=== PATIENT | male | born 1960 | race Caucasian/White ===

== ENCOUNTER 2021-10-24 05:14 | Inpatient (IN) | payer OTHER ==
[~2021-10-24] VITALS: Ht 172.7 cm; Wt 88.5 kg
[2021-10-24] MEDS ORDERED: ONDANSETRON HCL/PF 4 MG/2 ML VIAL ONE (05:27)
[2021-10-24] MEDS ORDERED: ONDANSETRON HCL/PF 4 MG/2 ML VIAL IV ONE (05:30)
[2021-10-24] MEDS ORDERED: IV NS 0.9% 1,000 ML BAG IV ONE (05:30)
--- NOTE | 2021-10-24 05:30 | NUR ---
PADMAJA TO ER BED 3. AAOX4. NOT IN RESP DISTRESS. BROUGHT IN FOR A SYNCOPAL EPISODE WHILE HE WAS AMBULATING TO BATHROOM. PT DENIES HIITING HIS HEAD. COMPLAINING OF DIZZYNESS, NAUSE AND REPORTS AN EPISODE OF VOMMITING BLOOD. PT RECEIVED ZOFRAN 4MG VIA IV AND 300ML OF NS VIA IV
--- NOTE | 2021-10-24 05:31 | NUR ---
ER SOLUTION STRATEGIST AT BEDSIDE
--- NOTE | 2021-10-24 05:42 | NUR ---
pt to ct
[2021-10-24] MEDS ORDERED: PANTOPRAZOLE 40 MG VIAL ONE (05:45)
[2021-10-24 05:49] LABS: BASOPHILS % (AUTO) 0.3 % (0.0-2.0); EOSINOPHILS % (AUTO) 1.6 % (0.0-6.0); HEMATOCRIT 30 % (39-51); HEMOGLOBIN 10.2 g/dL (13.5-17.5); LYMPHOCYTES # (AUTO) 2.3 K/uL (0.8-4.8); LYMPHOCYTES % (AUTO) 35.1 % (20.0-44.0); MEAN CORPUSCULAR HGB CONC 34 g/dl (31.0-36.0); MEAN CORPUSCULAR VOLUME 94 fL (80-96); MONOCYTES # (AUTO) 0.4 K/uL (0.1-1.30); NEUTROPHILS # (AUTO) 3.8 K/uL (1.8-8.9); PLATELET COUNT (AUTO) 102 K/uL (150-450); RED BLOOD CELL COUNT(AUTO) 3.19 MIL/uL (4.5-6.0); WHITE BLOOD COUNT (AUTO) 6.6 K/uL (4.3-11.0)
--- NOTE | 2021-10-24 05:54 | NUR ---
PT RETURNED FROM CT
[2021-10-24] MEDS ORDERED: PANTOPRAZOLE 80 MG in IV NS 0.9% 500 ML IV ONE (06:00)
[2021-10-24 06:08] LABS: CALCIUM, SERUM 8.1 mg/dL (8.5-10.1); CARBON DIOXIDE 24 mmol/L (21-32); CHLORIDE 106 mmol/L (98-107); CREATININE 0.9 mg/dL (0.6-1.3); GLUCOSE 207 mg/dL (74-106); POTASSIUM 3.8 mmol/L (3.5-5.1); SODIUM SERUM 139 mmol/L (136-145); UREA NITROGEN, BLOOD 28 mg/dL (7-18)
[2021-10-24 06:14] LABS: ALANINE AMINOTRANSFERASE 28 U/L (12-78); ALBUMIN 2.5 g/dL (3.4-5.0); ALKALINE PHOSPHATASE 102 U/L (46-116); ASPARTATE AMINOTRANSFERASE 35 U/L (15-37); BILIRUBIN,DIRECT 0.4 mg/dL (0.0-0.2); BILIRUBIN,TOTAL 1.3 mg/dL (0.2-1.0); TOTAL PROTEIN, SERUM 6.5 g/dL (6.4-8.2)
--- NOTE | 2021-10-24 06:17 | NUR ---
XRAY AT BEDSIDE
--- NOTE | 2021-10-24 07:25 | NUR ---
COVID SWAB COLLECTED
[2021-10-24] MEDS ORDERED: OCTREOTIDE 50 MCG in IV NS 0.9% 50 ML IJ ONE (09:30)
[2021-10-24] MEDS ORDERED: CEFTRIAXONE 1 G in IV D5W 50 ML IV ONE (09:30)
[2021-10-24] MEDS ORDERED: METOCLOPRAMIDE HCL 10 MG/2 ML VIAL IV ONE (09:30)
[2021-10-24] MEDS ORDERED: OCTREOTIDE 1,250 MCG in IV NS 0.9% 247.5 ML IV PRN (09:30)
[2021-10-24] MEDS ORDERED: METOCLOPRAMIDE HCL 10 MG/2 ML VIAL ONE (10:20)
--- NOTE | 2021-10-24 11:15 | NUR ---
ROOM 109
--- NOTE | 2021-10-24 11:16 | NUR ---
REPORT GIVEN TO NURSE DOMINGUEZ FOR CARY
--- NOTE | 2021-10-24 11:27 | NUR ---
THE PATIENT IS TRANSFERED TO ROOM 109 IN STABLE CONDITION AND PER ACLS POLICY
--- NOTE | 2021-10-24 11:30 | NUR ---
CROCHET BEADER OPENING NOTE RECEIVED PATIENT FROM ER VIA GURNEY ACCOMPANIED BY TWO ER STAFF. PATIENT IS ALERT AND ORIENTED X 3. BREATHING UNLABORED, DENIES PAIN, AND NOT IN ANY FORM OF DISTRESS. CLEAR BREATH SOUNDS WITH OXYGEN SATURATION AT 96%. PATIENT HAS ONGOING BLOOD TRANSFUSION OF 1 UNIT PRBC, INFUSING ON RIGHT ANTECUBITAL AREA. LEFT FOREARM IV GAUGE 18 IS INTACT AND PATENT AND INFUSING WITH PROTONIX. LEFT HAND GAUGE 18 IV IS INTACT AND PATENT. PATIENT IS ORIENTED TO ROOM AND ALL HOSPITAL PRECAUTIONS ARE KEPT IN PLACE. INITIAL ASSESSMENTS DONE AND DOCUMENTED ACCORDINGLY. BED IS LOCKED IN LOWEST POSITION, 3 SIDE RAILS UP, CALL LIGHT WITHIN REACH. WILL CONTINUE TO MONITOR THROUGHOUT SHIFT.
--- NOTE | 2021-10-24 11:55 | NUR ---
RN NOTE V/S MONITORED HOURLY DURING BLOOD TRANSFUSION. T: 98, VA 68, RR 18, BP 107/56, PAIN 0/10. NO TRANSFUSION REACTION NOTED.
[2021-10-24 12:00] VITALS: BP 107/56
--- NOTE | 2021-10-24 12:25 | NUR ---
RN NOTE TRANSFUSION ENDED. NO UNTOWARD REACTION NOTED. V/S: T 97.7, HR 70, RR 18, BP 109/56, PAIN 0/10.
[2021-10-24] MEDS ORDERED: Z GUARD REMEDY 4 OZ OINT TP PRN (13:30)
[2021-10-24] MEDS ORDERED: MAGNESIUM HYDROXIDE 30 ML UDC PO PRN (13:30)
[2021-10-24] MEDS ORDERED: MAG HYDROX/AL HYDROX/SIMETH 30 ML UDC PO PRN (13:30)
[2021-10-24] MEDS ORDERED: ONDANSETRON HCL/PF 4 MG/2 ML VIAL IVP PRN (13:30)
[2021-10-24] MEDS ORDERED: ACETAMINOPHEN 325 MG TABLET PO PRN (13:30)
[2021-10-24] MEDS ORDERED: ZOLPIDEM TARTRATE 5 MG TABLET PO PRN (13:30)
[2021-10-24 14:30] LABS: HEMOGLOBIN 10.7 g/dL (13.5-17.5)
--- NOTE | 2021-10-24 15:30 | NUR ---
RN NOTE PATIENT LEFT THE UNIT ACCOMPANIED BY TWO OR STAFF FOR EGD PROCEDURE. NOT IN ANY FORM OF DISTRESS.
--- NOTE | 2021-10-24 16:00 | NUR ---
RN NOTE RECEIVED PATIENT FROM OR POST EGD, IN STABLE CONDITION.
[2021-10-24] MEDS: IV D5/0.45 NACL 1,000 ML IV PRN (16:58)
[2021-10-24] MEDS: BLOOD SUGAR DIAGNOSTIC 1 EACH STRIP IN SCH ×2 (17:45→22:34)
[2021-10-24] MEDS ORDERED: DEXTROSE 50%-WATER 50 ML DISP.SYRIN IV PRN (18:00)
[2021-10-24] MEDS: INSULIN REGULAR, HUMAN 100 UNIT/ML 3 ML VIAL SQ PRN ×2 (18:31→22:36)
--- NOTE | 2021-10-24 18:51 | NUR ---
RN CLOSING NOTE PATIENT REMAINED STABLE THROUGHOUT THE SHIFT. NO EPISODE OF BLEEDING, NAUSEA OR VOMITING. ON CLEAR LIQUID DIET. SANDOSTATIN DRIP DISCONTINUED PER DOCTOR'S ORDER. ALL IV LINES INTACT AND PATENT. DENIES PAIN, BREATHING UNLABORED AND NOT IN ANY FORM OF DISTRESS. WILL ENDORSE TO REED MAN NURSE.
[2021-10-24 20:00] VITALS: BP 122/64
--- NOTE | 2021-10-24 20:00 | NUR ---
FISH PEDDLER OPENING NOTES RECEIVED PTS IN BED AWAKE A/OX3 RESPONSIVE ON R/A SATING 98% SR -HR 76 ON TELE MONITOR , NO SOB NO DISTRESS NOTED , V/S STABLE AFEBRILE .ON IV FLUID D5 1/2 NS AT 75CC/HR ON RIGHT AC g#20 , LEFT HAND g 18 ,LEFT FA g#18 INTACT AND PATENT. PTS S/P EGD .AND S/P 1 PACK PRBC THIS MORNING IN ER .DUE MEDS GIVEN NO ASE NOTED . ALL NEEDS ATTENDED TOO CALL LIGHT WITHIN REACH WILL CONTINUE TO MONITOR PTS.
[2021-10-24] MEDS: PANTOPRAZOLE 40 MG VIAL IV SCH (22:15)
--- NOTE | 2021-10-24 22:40 | NUR ---
teletype operator notes blood sugar for 10pm is 180 mg/dl 3 units of regular insulin given per sliding scale
[2021-10-25] VITALS: BP 116/54
[2021-10-25 04:00] VITALS: BP 98/47
--- NOTE | 2021-10-25 06:54 | NUR ---
senior telecommunications specialist notes pts remains on r/a , sating 96% no sob no distress noted ivf of D5 1/2ns at 75cc/hr tolerating well. all needs attended too call light within reach will endorse to rn day shift for continuity of care ..
--- NOTE | 2021-10-25 07:20 | NUR ---
CERAMIC ENGINEERING PROFESSOR OPENING NOTES: RECEIVED PATIENT IN BED, ASLEEP BUT EASILY AROUSES TO VOICE AND SOUND. NO SOB NOTED, ALERT AND ORIENTED X 4. NO RESPIRATORY DISTRESS NOTED. ON RA WITH OXYGEN SATURATION OF 95%. HAS IV FLUID OF D51/2 NS @ 75 ML/HR VIA LEFT FOREARM, PATENT, NO S/S OF INFILTRATION. ALSO HAS SALINE LOCKS ON LEFT HAND # 18, RIGHT ANTECUBITAL # 20, BOTH PATENT, FLUSHES WELL, NO REDNESS NOTED. BED LOCKED AND IN LOWEST POSITION. CALL LIGHT WITHIN REACH. SR UP X 2. WILL MONITOR PATIENT THROUGHOUT SHIFT.
[2021-10-25 08:00] VITALS: BP 93/52
[2021-10-25] MEDS: BLOOD SUGAR DIAGNOSTIC 1 EACH STRIP IN SCH ×4 (08:13→22:25)
[2021-10-25] MEDS: INSULIN REGULAR, HUMAN 100 UNIT/ML 3 ML VIAL SQ PRN ×3 (08:15→17:29)
[2021-10-25] MEDS: PANTOPRAZOLE 40 MG VIAL IV SCH ×2 (08:18→22:25)
[2021-10-25] MEDS: IV D5/0.45 NACL 1,000 ML IV PRN (10:17)
[2021-10-25 11:27] LABS: BASOPHILS % (AUTO) 0.7 % (0.0-2.0); EOSINOPHILS % (AUTO) 1.4 % (0.0-6.0); HEMATOCRIT 27 % (39-51); LYMPHOCYTES # (AUTO) 1.4 K/uL (0.8-4.8); LYMPHOCYTES % (AUTO) 36.3 % (20.0-44.0); MEAN CORPUSCULAR HGB CONC 34 g/dl (31.0-36.0); MEAN CORPUSCULAR VOLUME 93 fL (80-96); MONOCYTES # (AUTO) 0.2 K/uL (0.1-1.30); MONOCYTES % (AUTO) 6.3 % (2.0-12.0); NEUTROPHILS # (AUTO) 2.1 K/uL (1.8-8.9); NEUTROPHILS % (AUTO) 55.3 % (43.0-81.0); PLATELET COUNT (AUTO) 71 K/uL (150-450); RED BLOOD CELL COUNT(AUTO) 2.85 MIL/uL (4.5-6.0); WHITE BLOOD COUNT (AUTO) 3.7 K/uL (4.3-11.0)
[2021-10-25 11:45] LABS: CALCIUM, SERUM 7.8 mg/dL (8.5-10.1); CREATININE 0.8 mg/dL (0.6-1.3); MAGNESIUM 1.7 mg/dL (1.8-2.4); PHOSPHORUS 3.2 mg/dL (2.5-4.9); POTASSIUM 3.7 mmol/L (3.5-5.1)
[2021-10-25 12:00] VITALS: BP 112/59
[2021-10-25 12:21] LABS: LYMPHOCYTES % (MANUAL) 37 % (16-48); MONOCYTES % (MANUAL) 4 % (0-11.0); NEUTROPHILS % (MANUAL) 59 (42-76)
[2021-10-25 13:16] LABS: HEMOGLOBIN 9.6 g/dL (13.5-17.5)
[2021-10-25 16:00] VITALS: BP 113/54
[2021-10-25] MEDS ORDERED: CEFTRIAXONE 1 G in IV D5W 50 ML IV SCH (17:00)
--- NOTE | 2021-10-25 19:00 | NUR ---
RN CLOSING NOTES: PATIENT IN BED, AWAKE, ALERT ORIENTED X 4. NO SOB NOTED. ON RA WITH OXYGEN SATURATION OF 97%. HAS IV FLUID OF D51/2 NS @ 75 ML/HR VIA LEFT FOREARM, PATENT, NO S/S OF INFILTRATION. ALSO HAS SALINE LOCKS ON LEFT HAND # 18, RIGHT ANTECUBITAL # 20, BOTH PATENT, FLUSHES WELL, NO S/S OF INFILTRATION NOTED. BED LOCKED AND IN LOWEST POSITION. CALL LIGHT WITHIN REACH. NO C/O PAIN THE ENTIRE SHIFT. WILL ENDORSE TO NEXT SHIFT NURSE
[2021-10-25 20:00] VITALS: BP 113/69
--- NOTE | 2021-10-25 20:14 | NUR ---
RECEIVED PATIENT IN BED, ASLEEP BUT EASILY AROUSES TO VOICE AND SOUND. NO SOB NOTED, ALERT AND ORIENTED X 4. NO RESPIRATORY DISTRESS NOTED. ON RA WITH OXYGEN SATURATION OF 95%. HAS IV FLUID OF D51/2 NS @ 75 ML/HR VIA LEFT FOREARM, PATENT, NO S/S OF INFILTRATION. ALSO HAS SALINE LOCKS ON LEFT HAND # 18, RIGHT ANTECUBITAL # 20, BOTH PATENT, FLUSHES WELL, NO REDNESS NOTED. SAFETY MEASURES IN PLACE, BED LOCKED AND IN LOWEST POSITION. CALL LIGHT WITHIN REACH. SIDERAILS UP X 2. BED ALARM ON, WILL CONTINUE PLAN OF CARE.
[2021-10-26] VITALS: BP 118/62
[2021-10-26] MEDS: INSULIN REGULAR, HUMAN 100 UNIT/ML 3 ML VIAL SQ PRN ×3 (01:58→12:26)
[2021-10-26] MEDS: IV D5/0.45 NACL 1,000 ML IV PRN (02:10)
[2021-10-26 04:00] VITALS: BP 105/50
--- NOTE | 2021-10-26 06:35 | NUR ---
PATIENT IN BED, ASLEEP BUT EASILY AROUSES TO VOICE AND SOUND. NO SOB NOTED, ALERT AND ORIENTED X 4. NO RESPIRATORY DISTRESS NOTED. ON RA WITH OXYGEN SATURATION OF 95%. HAS IV FLUID OF D51/2 NS @ 75 ML/HR VIA LEFT FOREARM, PATENT, NO S/S OF INFILTRATION. ALSO HAS SALINE LOCKS ON LEFT HAND # 18, RIGHT ANTECUBITAL # 20, BOTH PATENT, FLUSHES WELL, NO REDNESS NOTED. SAFETY MEASURES IN PLACE, BED LOCKED AND IN LOWEST POSITION. CALL LIGHT WITHIN REACH. SIDERAILS UP X 2. BED ALARM ON, WILL ENDORSE TO NEXT NURSE ON DUTY FOR CONTINUITY OF CARE.
[2021-10-26 07:12] LABS: BASOPHILS % (AUTO) 0.7 % (0.0-2.0); HEMATOCRIT 26 % (39-51); HEMOGLOBIN 9.2 g/dL (13.5-17.5); LYMPHOCYTES # (AUTO) 1.2 K/uL (0.8-4.8); LYMPHOCYTES % (AUTO) 40.8 % (20.0-44.0); MEAN CORPUSCULAR HGB CONC 36 g/dl (31.0-36.0); MEAN CORPUSCULAR VOLUME 93 fL (80-96); MONOCYTES # (AUTO) 0.2 K/uL (0.1-1.30); MONOCYTES % (AUTO) 8.4 % (2.0-12.0); NEUTROPHILS # (AUTO) 1.4 K/uL (1.8-8.9); NEUTROPHILS % (AUTO) 47.1 % (43.0-81.0); PLATELET COUNT (AUTO) 66 K/uL (150-450); RED BLOOD CELL COUNT(AUTO) 2.79 MIL/uL (4.5-6.0)
[2021-10-26 07:16] LABS: CALCIUM, SERUM 7.9 mg/dL (8.5-10.1); CREATININE 0.8 mg/dL (0.6-1.3); MAGNESIUM 1.9 mg/dL (1.8-2.4); PHOSPHORUS 4.6 mg/dL (2.5-4.9); POTASSIUM 3.5 mmol/L (3.5-5.1)
--- NOTE | 2021-10-26 07:30 | NUR ---
teletype mechanic opening note patient is alert and oriented x4. patient is congolese speaking. patient is able to make needs known. patient has iv site.intzact and flushing well. asll safety measures in place. call light within reach, bed locked in lowest position.
[2021-10-26] MEDS: BLOOD SUGAR DIAGNOSTIC 1 EACH STRIP IN SCH ×2 (07:34→12:26)
[2021-10-26 08:00] VITALS: BP 106/61
[2021-10-26] MEDS: PANTOPRAZOLE 40 MG VIAL IV SCH (08:32)
[2021-10-26 12:00] VITALS: BP 110/58
[2021-10-26] MEDS ORDERED: PANT40TA2 PO (12:24)
--- NOTE | 2021-10-26 14:30 | NUR ---
patient discharged.patient stable vital signs
== END 2021-10-26 14:55 | disposition home or self-care (01) | DRG 241 ==
LOC: ER 05:23 → TRANSITION 09:27 → TELE1 11:07
PROVIDERS: ADMIT Student in an Organized Health Care Education/Training Program; ATTEND Student in an Organized Health Care Education/Training Program
PROC: 0DB68ZX Excision of Stomach, Via Natural or Artificial Opening Endoscopic, Diagnostic (ICD-10-PCS; principal; 2021-10-24)
PROC: 30233N1 Transfusion of Nonautologous Red Blood Cells into Peripheral Vein, Percutaneous Approach (ICD-10-PCS; 2021-10-24)
DX: K26.4 Chronic or unspecified duodenal ulcer with hemorrhage (principal); D69.6 Thrombocytopenia, unspecified; E44.0 Moderate protein-calorie malnutrition; K76.0 Fatty (change of) liver, not elsewhere classified; E86.0 Dehydration; D64.9 Anemia, unspecified; E11.9 Type 2 diabetes mellitus without complications; Z85.038 Personal history of other malignant neoplasm of large intestine; Z20.822 Contact with and (suspected) exposure to COVID-19; R79.89 Other specified abnormal findings of blood chemistry; K29.70 Gastritis, unspecified, without bleeding
CPT/HCPCS: 36415; 70450-TC; 71045-TC; 80048-TC; 80076-TC; 82962-TC; 83735-TC; 83880; 84100-TC; 84484-TC; 85025-TC; 85027-TC; 85730-TC; 86850-TC; 87081-TC; 93307-TC; 97116-TC; 97530-TC; C9113; C9803; G0378; J0696; J1815; J2354; J2405; J2765; J3490; J7030; J7040; J7050; J7060; P9016

== ENCOUNTER 2021-12-10 18:38 | Emergency (ER) | payer OTHER ==
[~2021-12-10] VITALS: Ht 167.6 cm; Wt 90.7 kg
[~2021-12-10 18:38] MED LIST: PANT40TA2 PO
--- NOTE | 2021-12-10 19:00 | NUR ---
I have a problem with my stomach. Was seen here before for same. Abdominal pain and diarrhea couple of days. patient is aaox4. attached to monitor. vitals checked.
[2021-12-10] MEDS ORDERED: IV NS 0.9% 1,000 ML BAG IV ONE ×2 (19:30)
--- NOTE | 2021-12-10 19:30 | NUR ---
PATIENT WHEELED TO [facility] DEPT
--- NOTE | 2021-12-10 19:49 | NUR ---
RECEIVED PATIENT ALERT. CAME WITH CC OF ABDOMINAL PAIN AND DIARRHEA FOR 2 DAYS. PATIENT ABLE TO MAKE NEEDS KNOWN. ATTACHED TO MONITOR. VITALS CHECKED.
[2021-12-10 20:07] LABS: CALCIUM, SERUM 8.3 mg/dL (8.5-10.1); POTASSIUM 3.9 mmol/L (3.5-5.1)
[2021-12-10 20:27] LABS: ALBUMIN 3.1 g/dL (3.4-5.0); BILIRUBIN,DIRECT 0.5 mg/dL (0.0-0.2); BILIRUBIN,TOTAL 1.2 mg/dL (0.2-1.0); TOTAL PROTEIN, SERUM 7.9 g/dL (6.4-8.2)
[2021-12-10 20:38] LABS: BASOPHILS % (AUTO) 0.3 % (0.0-2.0); EOSINOPHILS % (AUTO) 0.5 % (0.0-6.0); HEMATOCRIT 32 % (39-51); HEMOGLOBIN 10.2 g/dL (13.5-17.5); LYMPHOCYTES # (AUTO) 1.2 K/uL (0.8-4.8); LYMPHOCYTES % (AUTO) 23.8 % (20.0-44.0); MEAN CORPUSCULAR HGB CONC 33 g/dl (31.0-36.0); MEAN CORPUSCULAR VOLUME 86 fL (80-96); MONOCYTES # (AUTO) 0.5 K/uL (0.1-1.30); MONOCYTES % (AUTO) 9.3 % (2.0-12.0); NEUTROPHILS # (AUTO) 3.3 K/uL (1.8-8.9); NEUTROPHILS % (AUTO) 66.1 % (43.0-81.0); PLATELET COUNT (AUTO) 96 K/uL (150-450); RED BLOOD CELL COUNT(AUTO) 3.67 MIL/uL (4.5-6.0); WHITE BLOOD COUNT (AUTO) 4.9 K/uL (4.3-11.0)
[2021-12-10 20:43] LABS: LYMPHOCYTES % (MANUAL) 20 % (16-48); MONOCYTES % (MANUAL) 10 % (0-11.0); NEUTROPHILS % (MANUAL) 70 (42-76)
[2021-12-10] MEDS ORDERED: ONDA4TAB11 PO (21:10)
[2021-12-10] MEDS ORDERED: DICY20TA11 PO (21:10)
[2021-12-10] MEDS ORDERED: LOPE2CAP40 PO (21:10)
--- NOTE | 2021-12-10 21:30 | NUR ---
IV CANNULA REMOVED
--- NOTE | 2021-12-10 21:38 | NUR ---
Patient discharged to home in stable condition. Written and verbal after care instructions given. Patient verbalizes understanding of instruction.
[2021-12-10 21:39] VITALS: BP 118/63
== END 2021-12-10 21:39 | disposition home or self-care (01) ==
LOC: ER 18:42
DX: K52.9 Noninfective gastroenteritis and colitis, unspecified (principal); E11.9 Type 2 diabetes mellitus without complications; Z79.899 Other long term (current) drug therapy
CPT/HCPCS: 99284; 74176; 96360; 85025; 80048; 83690; 80076; 36415; 85007; J7030

== ENCOUNTER 2022-02-11 16:00 | Inpatient (IN) | payer OTHER ==
[~2022-02-11] VITALS: Ht 170.2 cm; Wt 77.6 kg
[~2022-02-11 16:00] MED LIST changes: +DICY20TA11 PO; +LOPE2CAP40 PO; +ONDA4TAB11 PO; +SOD FERRIC GLUC 125 MG in IV NS 0.9% 100 ML IV SCH
--- NOTE | 2022-02-11 16:38 | NUR ---
PT C/O BILATERAL LEG EDEMA AND SOB X 4 DAYS. PT AAOX4, ON TELE, SR. VSS. WILL CONT TO MONITOR.
[2022-02-11 17:10] LABS: BASOPHILS % (AUTO) 1.6 % (0.0-2.0); EOSINOPHILS % (AUTO) 1.6 % (0.0-6.0); LYMPHOCYTES % (AUTO) 35.8 % (20.0-44.0); MEAN CORPUSCULAR HGB CONC 29 g/dl (31.0-36.0); MEAN CORPUSCULAR VOLUME 68 fL (80-96); MONOCYTES # (AUTO) 0.1 K/uL (0.1-1.30); MONOCYTES % (AUTO) 4.5 % (2.0-12.0); NEUTROPHILS # (AUTO) 1.6 K/uL (1.8-8.9); NEUTROPHILS % (AUTO) 56.5 % (43.0-81.0); PLATELET COUNT (AUTO) 122 K/uL (150-450); RED BLOOD CELL COUNT(AUTO) 2.13 MIL/uL (4.5-6.0); WHITE BLOOD COUNT (AUTO) 2.8 K/uL (4.3-11.0)
[2022-02-11 17:14] LABS: CALCIUM, SERUM 7.8 mg/dL (8.5-10.1); CARBON DIOXIDE 22 mmol/L (21-32); CHLORIDE 106 mmol/L (98-107); CREATININE 0.8 mg/dL (0.6-1.3); GLUCOSE 152 mg/dL (74-106); POTASSIUM 3.2 mmol/L (3.5-5.1); SODIUM SERUM 136 mmol/L (136-145); UREA NITROGEN, BLOOD 11 mg/dL (7-18)
[2022-02-11 17:15] LABS: HEMOGLOBIN 4.3 g/dL (13.5-17.5)
[2022-02-11 17:16] LABS: HEMATOCRIT 15 % (39-51)
[2022-02-11 17:28] LABS: ALANINE AMINOTRANSFERASE 17 U/L (12-78); ALBUMIN 2.9 g/dL (3.4-5.0); ALKALINE PHOSPHATASE 108 U/L (46-116); ASPARTATE AMINOTRANSFERASE 33 U/L (15-37); BILIRUBIN,DIRECT 0.4 mg/dL (0.0-0.2); TOTAL PROTEIN, SERUM 7.2 g/dL (6.4-8.2)
[2022-02-11] MEDS ORDERED: FUROSEMIDE 40 MG/4 ML VIAL IV ONE (17:30)
[2022-02-11] MEDS ORDERED: FUROSEMIDE 40 MG/4 ML VIAL ONE (17:42)
[2022-02-11] MEDS ORDERED: CYAN100T44 PO (17:48)
[2022-02-11] MEDS ORDERED: METF1000 PO (17:48)
[2022-02-11] MEDS ORDERED: PANT40TA49 PO (17:48)
--- NOTE | 2022-02-11 17:51 | NUR ---
MEDICATED PER ERMD ORDER, PT AVA WELL. WILL CONT TO MONITOR.
[2022-02-11] MEDS ORDERED: POTASSIUM CHLORIDE 20 MEQ TAB.PRT.SR PO ONE (18:00)
[2022-02-11 19:08] LABS: BILIRUBIN,URINE NEGATIVE (NEGATIVE); COLOR,URINE YELLOW (YELLOW); LEUKOCYTE ESTERASE ,URINE NEGATIVE (NEGATIVE); NITRITE, URINE NEGATIVE (NEGATIVE); PROTEIN,URINE NEGATIVE (NEGATIVE); UGLUCOSE NEGATIVE (NEGATIVE); UROBILINOGEN,URINE 0.2 EU/dL (0.2)
[2022-02-11] MEDS ORDERED: PANTOPRAZOLE 40 MG VIAL IV ONE (19:30)
[2022-02-11] MEDS ORDERED: MAG HYDROX/AL HYDROX/SIMETH 30 ML UDC PO PRN (20:00)
[2022-02-11] MEDS ORDERED: MORPHINE SULFATE INJ 2 MG/ML DISP.SYRIN IV PRN (20:00)
[2022-02-11] MEDS ORDERED: MAGNESIUM HYDROXIDE 30 ML UDC PO PRN (20:00)
[2022-02-11] MEDS ORDERED: ACETAMINOPHEN 325 MG TABLET PO PRN (20:00)
[2022-02-11] MEDS ORDERED: Z GUARD REMEDY 4 OZ OINT TP PRN (20:00)
[2022-02-11] MEDS ORDERED: ONDANSETRON HCL/PF 4 MG/2 ML VIAL IVP PRN (20:00)
[2022-02-11] MEDS ORDERED: DEXTROSE 50%-WATER 50 ML DISP.SYRIN IV PRN (20:00)
--- NOTE | 2022-02-11 20:15 | NUR ---
CONSENT FOR BT SIGNED BY PATIENT. 1 UNIT PRBC READY FOR TRANSFUSION
--- NOTE | 2022-02-11 21:00 | NUR ---
BT STARTED. 1UNIT PRBC STARTED. BLOOD VERIFIED WITH GABRIELLE CORREA. PATIENT WILL BE ON CONTINUOUS MONITORING
--- NOTE | 2022-02-11 21:16 | NUR ---
REPORT GIVEN GABRIELLE ORTEGA
--- NOTE | 2022-02-11 21:30 | NUR ---
RN NOTES ADMITTED A MALE PATIENT FROM ER VIA [facility] WITH DX OF ACUTE ANEMIA SECONDARY TO GI BLEED. VITAL SIGNS TAKEN AND [id number] AFEBRILE. SAFELY TRANSFER TO BED. WITH IV ACCESS AT R AC #20 PATENT WITH ONGOING BLOOD TRANSFUSION @ 75ML/HR TOLERATING WELL NO TRANSFUSION REACTION NOTED AT THIS TIME. BODY ASSESSMENT DONE. BELONGINGS CHECK. ALL SAFETY MEASURES IN PLACE AT ALL TIMES. HOB ELEVATED. CALL LIGHT WITHIN REACH. WILL CLOSELY MONITOR THE PATIENT
--- NOTE | 2022-02-11 21:43 | NUR ---
TRANSFERRED TO [facility] VIA ACLS.
[2022-02-11] MEDS: BLOOD SUGAR DIAGNOSTIC 1 EACH STRIP IN SCH (22:06)
[2022-02-11] MEDS: INSULIN REGULAR, HUMAN 100 UNIT/ML 3 ML VIAL SQ PRN (22:31)
[2022-02-12] VITALS (14 sets, daily range): BP systolic 96–115; BP diastolic 42–64
--- NOTE | 2022-02-12 | NUR ---
RN NOTES BLOOD TRANSFUSION COMPLETED NO BLOOD TRANSFUSION REACTION NOTED
--- NOTE | 2022-02-12 00:13 | NUR ---
RN NOTES ANOTHER 1 UNIT PRBC TYPE A POS STARTED. WILL CLOSELY MONITOR PATIENT FOR ANT TRANSFUSION REACTION AND OVERLOAD.
--- NOTE | 2022-02-12 03:15 | NUR ---
RN NOTES BLOOD TRANSFUSION COMPLETED. NO BLOOD TRANSFUSION REACTION NOTED
[2022-02-12 03:25] LABS: BAND % (MANUAL) 5 % (0.0-5.0); BASOPHILS % (MANUAL) 0 % (0.0-2.0); EOSINOPHILS % (MANUAL) 1 % (0-4); LYMPHOCYTES % (MANUAL) 25 % (16-48); MONOCYTES % (MANUAL) 6 % (0-11.0); NEUTROPHILS % (MANUAL) 63 (42-76)
[2022-02-12 06:56] LABS: BASOPHILS % (AUTO) 1.2 % (0.0-2.0); EOSINOPHILS % (AUTO) 2.1 % (0.0-6.0); LYMPHOCYTES # (AUTO) 0.8 K/uL (0.8-4.8); LYMPHOCYTES % (AUTO) 34.5 % (20.0-44.0); MEAN CORPUSCULAR HGB CONC 31 g/dl (31.0-36.0); MEAN CORPUSCULAR VOLUME 71 fL (80-96); MONOCYTES # (AUTO) 0.2 K/uL (0.1-1.30); MONOCYTES % (AUTO) 8.1 % (2.0-12.0); NEUTROPHILS # (AUTO) 1.3 K/uL (1.8-8.9); NEUTROPHILS % (AUTO) 54.1 % (43.0-81.0); PLATELET COUNT (AUTO) 102 K/uL (150-450); RED BLOOD CELL COUNT(AUTO) 2.67 MIL/uL (4.5-6.0); WHITE BLOOD COUNT (AUTO) 2.5 K/uL (4.3-11.0)
--- NOTE | 2022-02-12 07:04 | NUR ---
RN NOTES PATIENTB REMAINS STABLE NO SIGNIFICANT CHANGES. S/P BLOOD TRANSFUSION 2 UNITS PRBC TOLERATING WELL NO OVERLOAD NOTED AT THIS TIME. WILL CLOSELY MONITOR THE PATIENT
[2022-02-12 07:17] LABS: CALCIUM, SERUM 7.9 mg/dL (8.5-10.1); CREATININE 0.7 mg/dL (0.6-1.3); PHOSPHORUS 4.1 mg/dL (2.5-4.9); POTASSIUM 3.8 mmol/L (3.5-5.1)
[2022-02-12 07:22] LABS: HEMATOCRIT 19 % (39-51); HEMOGLOBIN 5.9 g/dL (13.5-17.5)
[2022-02-12 07:27] LABS: THYROID STIMULATING HORMONE 2.167 uIU/mL (0.358-3.74)
[2022-02-12] MEDS: BLOOD SUGAR DIAGNOSTIC 1 EACH STRIP IN SCH ×4 (07:52→22:13)
--- NOTE | 2022-02-12 08:14 | NUR ---
RN NOTE NOTIFIED DEBBIE VARGAS MD OF HGB 5.9 AND HCT OF 19. ORDERS TO GIVE 40 IV LASIX THEN TRANSFUSE 2 MORE UNITS OF RBCS. CHARGE NURSE AWARE.
[2022-02-12] MEDS: INSULIN REGULAR, HUMAN 100 UNIT/ML 3 ML VIAL SQ PRN ×2 (08:18→11:57)
[2022-02-12] MEDS: FUROSEMIDE 40 MG/4 ML VIAL IV SCH (09:00)
[2022-02-12] MEDS: CYANOCOBALAMIN 100 MCG TABLET PO SCH (09:00)
--- NOTE | 2022-02-12 11:35 | NUR ---
RN NOTE WILL HOLD LASIX ATTHIS TIME UNTIL BLOOD IS READY. CHARGE NURSE AWARE.
[2022-02-12] MEDS: PANTOPRAZOLE 40 MG VIAL IV SCH ×2 (11:46→22:02)
[2022-02-12] MEDS: ENSURE CLEAR 237 ML LIQUID (MIX BERRY) PO SCH ×2 (12:00→17:44)
[2022-02-12 12:49] LABS: BAND % (MANUAL) 2 % (0.0-5.0); LYMPHOCYTES % (MANUAL) 26 % (16-48); MONOCYTES % (MANUAL) 6 % (0-11.0); NEUTROPHILS % (MANUAL) 66 (42-76)
[2022-02-12] MEDS: IRON SUCROSE COMPLEX 200 MG in IV NS 0.9% 100 ML IV SCH (15:32)
[2022-02-12 17:05] LABS: IRON, SERUM 42 ug/dl (50-175); TOTAL IRON BINDING CAPACITY 396 ug/dl (250-450)
[2022-02-12 17:08] LABS: FERRITIN 19 ng/mL (8-388)
[2022-02-12 17:14] LABS: C-REACTIVE PROTEIN < 0.2 mg/dL (0.0-0.9)
[2022-02-12 17:23] LABS: HEMOGLOBIN 6.3 g/dL (13.5-17.5)
--- NOTE | 2022-02-12 17:26 | NUR ---
RN NOTE CALLED LAB, BLOOD IS NOT READY. HGB 6.3, THEY WILL CALL WHEN IT IS READY.
[2022-02-12] MEDS: FOLIC ACID 1 MG TABLET PO SCH (17:47)
--- NOTE | 2022-02-12 19:07 | NUR ---
RN NOTE PATIENT IS IN BED AOX4. BREATHING ON ROOM AIR AT 96%. AWAITING BLOOD TRANSFUSION. IV ACCESS RAC #20 INTACT. NO PAIN NOTED AT THIS TIME. WILL ENDORSE CONTINUITY OF CARE TO SUPERVISOR CARPENTERS NURSE.
--- NOTE | 2022-02-12 19:30 | NUR ---
RN OPENING NOTE RECEIVED PATIENT IN BED; AWAKE, ALERT AND ORIENTED X 4. ENGLISH SPEAKING. ON ROOM AIR; TOLERATING WELL. BREATHING EVEN AND NONLABORED. NOT IN ANY FORM OF RESPIRATORY DISTRESS. DENIES ANY PAIN OR DISCOMFORT AT THIS TIME. ON TELE MONITORING WHICH READS SINUS RHYTHM HR-70 BPM. WITH IV ACCESS @ RIGHT AC 20G; PATENT, INTACT AND SALINE LOCKED. ABLE TO MAKE NEEDS KNOWN. SAFETY MEASURES IMPLEMENTED: CALL LIGHT AND TABLE WITHIN REACH, SIDE RAILS UP X 2, BED IN LOWEST LOCKED POSITION. WILL CONTINUE TO MONITOR THROUGHOUT SHIFT.
[2022-02-12 21:05] LABS: D-DIMER 1.82 mg/L(FEU (0.17-0.50)
--- NOTE | 2022-02-12 23:25 | NUR ---
RN NOTE BLOOD TRANSFUSION OF 1 UNIT PRBC STARTED. BLOOD VERIFIED WITH GABRIELLE BURNHAM. NO ALLERGIC REACTION NOTED. VS TAKEN FOLLOWS: T-98.1, WI-70, RR-18, O2 SAT-95%, BP-101/59 MM HG. PATIENT REMAINED STABLE. WILL CONTINUE TO MONITOR.
--- NOTE | 2022-02-12 23:40 | NUR ---
RN NOTE BLOOD TRANSFUSION ONGOING. NO ALLERGIC REACTIONS NOTED. VS FOLLOWS: T-98.2, FL-71, RR-19, O2 SAT-95%, BP-109/57. PATIENT REMAINED STABLE. DENIES ANY PAIN OR DISCOMFORT. WILL CONTINUE TO MONITOR.
[2022-02-13] VITALS (16 sets, daily range): BP systolic 98–120; BP diastolic 42–68
--- NOTE | 2022-02-13 00:25 | NUR ---
RN NOTE BLOOD TRANSFUSION STILL ONGOING. NO ALLERGIC REACTIONS NOTED. VS FOLLOWS: T-98.4 MO-66, RR-20, O2 SAT-96%, BP-105/55. PATIENT REMAINED STABLE. DENIES ANY PAIN OR DISCOMFORT. WILL CONTINUE TO MONITOR.
--- NOTE | 2022-02-13 02:40 | NUR ---
RN NOTE BLOOD TRANSFUSION ENDED. NO ALLERGIC REACTIONS NOTED THROUGHOUT THE TRANSFUSION. VS FOLLOWS: T-98.5, IL-68, RR-20, O2 SAT-93%, BP-98/45. PATIENT REMAINED STABLE. DENIES ANY PAIN OR DISCOMFORT. WILL CONTINUE TO MONITOR.
--- NOTE | 2022-02-13 06:55 | NUR ---
RN CLOSING NOTE PATIENT IN BED; AWAKE, A/O X 4. MONTSERRATIAN SPEAKING. STABLE ON ROOM AIR. BREATHING EQUAL AND UNLABORED. IN NO FORM OF RESPIRATORY DISTRESS. NO C/O ANY PAIN OR DISCOMFORT AT THIS TIME. ON TELE MONITORING WHICH READS SINUS RHYTHM HR-65 BPM. WITH IV ACCESS @ RIGHT AC 20G; PATENT, INTACT AND SALINE LOCKED. ALL NEEDS ATTENDED. SAFETY MEASURES MAINTAINED: CALL LIGHT AND TABLE WITHIN REACH, SIDE RAILS UP X 2, BED IN LOWEST LOCKED POSITION. ENDORSED TO MORNING SHIFT FOR CARY.
[2022-02-13 07:01] LABS: BASOPHILS % (AUTO) 1.2 % (0.0-2.0); EOSINOPHILS % (AUTO) 2.9 % (0.0-6.0); HEMATOCRIT 21 % (39-51); LYMPHOCYTES # (AUTO) 0.8 K/uL (0.8-4.8); LYMPHOCYTES % (AUTO) 35.8 % (20.0-44.0); MEAN CORPUSCULAR HGB CONC 31 g/dl (31.0-36.0); MEAN CORPUSCULAR VOLUME 72 fL (80-96); MONOCYTES # (AUTO) 0.2 K/uL (0.1-1.30); MONOCYTES % (AUTO) 9.8 % (2.0-12.0); NEUTROPHILS # (AUTO) 1.2 K/uL (1.8-8.9); NEUTROPHILS % (AUTO) 50.3 % (43.0-81.0); PLATELET COUNT (AUTO) 99 K/uL (150-450); RED BLOOD CELL COUNT(AUTO) 2.96 MIL/uL (4.5-6.0); WHITE BLOOD COUNT (AUTO) 2.3 K/uL (4.3-11.0)
[2022-02-13 07:06] LABS: CALCIUM, SERUM 7.8 mg/dL (8.5-10.1); CREATININE 0.7 mg/dL (0.6-1.3); POTASSIUM 3.6 mmol/L (3.5-5.1)
[2022-02-13 07:08] LABS: HEMOGLOBIN 6.7 g/dL (13.5-17.5)
--- NOTE | 2022-02-13 07:32 | NUR ---
DOORSHAKER OPENING NOTES: RECEIVED PATIENT IN BED, LAO SPEAKING MALE BUT ABLE TO SPEAK IN IRISH AT TIMES. PATIENT IS AWAKE, ALERT, ORIENTED X 3. NO RESPIRATORY DISTRESS NOTED, BREATHING EVEN AND UNLABORED. ON RA WITH OXYGEN SATURATION OF 95%. ON SR WITH HR OF 64 ON TELE MONITOR. HAS IV ACCESS ON RIGHT ANTECUBITAL AREA, PATENT, INTACT, FLUSHES WELL WITH NO S/S INFILTRATION NOTED. PATIENT REMAINS ON NPO DUE TO A PROCEDURE OF EGD TODAY. ALL SAFETY MEASURES IN PLACE. BED LOCKED AND IN LOWEST POSITION WITH BED ALARM ON. CALL LIGHT WITHIN REACH. WILL CONTINUE TO MONITOR PATIENT THROUGHOUT SHIFT.
[2022-02-13] MEDS: BLOOD SUGAR DIAGNOSTIC 1 EACH STRIP IN SCH ×4 (07:34→22:10)
[2022-02-13] MEDS: ENSURE CLEAR 237 ML LIQUID (MIX BERRY) PO SCH ×3 (08:00→17:55)
--- NOTE | 2022-02-13 08:24 | NUR ---
lab called in stated that hgb 6.7 hct 21 left message to =yudy gillette 1 units of PRBC today when ready
[2022-02-13] MEDS: FOLIC ACID 1 MG TABLET PO SCH (09:00)
[2022-02-13] MEDS: CYANOCOBALAMIN 100 MCG TABLET PO SCH (09:00)
[2022-02-13] MEDS: FUROSEMIDE 40 MG/4 ML VIAL IV SCH (09:30)
[2022-02-13] MEDS ORDERED: FUROSEMIDE 20 MG/2 ML VIAL IV PRN (09:30)
[2022-02-13] MEDS: PANTOPRAZOLE 40 MG VIAL IV SCH ×2 (09:31→21:41)
--- NOTE | 2022-02-13 09:40 | NUR ---
DR ARMSTRONG CAME TO SEE THE PATIENT WITH AN ORDER FOR 2 FFP AND 1PRBC. ALL ORDERS NOTED AND CARRIED OUT. PATIENT MADE AWARE AND AGREED AND UNDERSTOOD. PATIENT ALREADY HAD A CONSENT PREVIOUSLY SIGNED BY THE PATIENT. WILL WAIT FOR BLOOD AVAILABILITY.
[2022-02-13] MEDS: INSULIN REGULAR, HUMAN 100 UNIT/ML 3 ML VIAL SQ PRN ×2 (12:25→22:10)
[2022-02-13 14:06] LABS: *ANA ANTI-CENTROMERE B AB <0.2 AI (0.0-0.9); *ANA ANTI-DNA(DS) AB, QN <1 IU/mL (0-9); *ANA ANTI-JO-1 <0.2 AI (0.0-0.9); *ANA ANTICHROMATIN ANTIBODY 0.4 AI (0.0-0.9); *ANA RNP ANTIBODIES <0.2 AI (0.0-0.9); *ANA SJOGREN'S ANTI-SS-A <0.2 AI (0.0-0.9); *ANA SJOGREN'S ANTI-SS-B <0.2 AI (0.0-0.9); *ANAANTI-SCLERODERMA-70 AB 0.6 AI (0.0-0.9); *ANASMITH AB <0.2 AI (0.0-0.9)
--- NOTE | 2022-02-13 14:44 | NUR ---
PATIENT WAS PICKED UP FOR HIS EGD PROCEDURE. PATIENT LEFT IN NO APPARENT DISTRESS. PATIENT FINISHED HIS TRANSFUSION OF 2 FFP BUT JUST STARTED HIS PRBC ABOUT HALF AN HOUR AGO. PATIENT WITH NO IMMEDIATE REACTION NOTED ON BLOOD TRANSFUSION
--- NOTE | 2022-02-13 16:43 | NUR ---
PATIENT BACK IN THE ROOM POST EGD, PER NURSE ARTURO MITTAL, PATIENT WAS NOTED TO HAVE GASTRIC VARICES, PER DR. CHEEK. THE DOCTOR ALSO PLACED HIM ON REGULAR DIET. PATIENT IN NO ACUTE DISTRESS NOTED. NO C/O PAIN OR DISCOMFORT. BLOOD TRANSFUSION IS STILL BEING ADMINISTERED TO THE PATIENT. VS FOLLOWS: BP 100/60, PULSE 63, TEMPT 98.0, RR 20, OXYGEN SATURATION OF 100% ON RA. NO APPARENT REACTION NOTE TO THE BLOOD.
[2022-02-13 18:01] LABS: EOSINOPHILS % (MANUAL) 3 % (0-4); LYMPHOCYTES % (MANUAL) 30 % (16-48); MONOCYTES % (MANUAL) 5 % (0-11.0); NEUTROPHILS % (MANUAL) 62 (42-76)
--- NOTE | 2022-02-13 19:12 | NUR ---
DONOR PROCESSOR CLOSING NOTES: PATIENT IN BED, AWAKE, ALERT, ORIENTED X 4 WITH AT BEDSIDE. PATIENT HAS NO C/O PAIN OR DISCOMFORT AT THIS TIME. ON SR WITH HR OF 72 ON TELE MONITOR. PATIENT WAS ABLE TO TOLERATE HIS DIET. IV SITE ON RIGHT ANTECUBITAL AREA IS INTACT, NO S/S INFILTRATION NOTED. ALL NEEDS MET AND ANTICIPATED. ALL SAFETY MEASURES IMPLEMENTED THROUGHPUT SHIFT. WILL ENDORSE TO INCOMING NURSE FOR CONTINUITY OF CARE.
--- NOTE | 2022-02-13 19:20 | NUR ---
RN NOTES RECEIVED REPORT FROM MORNING RN. PATIENT IN BED A/O X4. ON ROOM AIR SATING 98% NO SOB NO DISTRESS NOTED. WITH IV ACCESS AT R AC#20 PATENT FLUSHES WELL. S/P 2 UNITS FFP, 1 UNIT PRBC. ALL SAFETY MEASURES IN PLACE AT ALL TIMES. HOB ELEVATED. CALL LIGHT WWITHIN REACH. WILL CLOSELY MONITOR THE PATIENT
[2022-02-13 20:19] LABS: HEMOGLOBIN 8.3 g/dL (13.5-17.5)
[2022-02-13 20:45] LABS: D-DIMER 2.83 mg/L(FEU (0.17-0.50)
[2022-02-14] VITALS: BP 116/62
[2022-02-14 04:00] VITALS: BP 118/62
--- NOTE | 2022-02-14 06:46 | NUR ---
NET APPLICATION SUPPORT SPECIALIST CLOSING NOTES PATIENT IN BED, AWAKE, ALERT, ORIENTED X 4 WITH AT BEDSIDE. PATIENT HAS NO C/O PAIN OR DISCOMFORT AT THIS TIME. ON SR WITH HR OF 72 ON TELE MONITOR. PATIENT WAS ABLE TO TOLERATE HIS DIET. IV SITE ON RIGHT ANTECUBITAL AREA IS INTACT, NO S/S INFILTRATION NOTED. ALL NEEDS MET AND ANTICIPATED. ALL SAFETY MEASURES IMPLEMENTED THROUGHPUT SHIFT. WILL ENDORSE TO INCOMING NURSE FOR CONTINUITY OF CARE.
--- NOTE | 2022-02-14 07:30 | NUR ---
MANAGER FACILITY OPENING NOTES received patient in bed. pt alert and oriented x4. pt no pain or signs of discomfort at this time. pt is on room air tolerating well. pt is on tele monitor sr 64.pt has iv on right ac. iv intact, patent and flushing well. no signs of infrillation noted at this time. all safety measures in place. bed locked and in lowest position. bed alarm on.call light within reach. side rails up x2.
[2022-02-14] MEDS: BLOOD SUGAR DIAGNOSTIC 1 EACH STRIP IN SCH ×4 (07:42→21:16)
[2022-02-14 07:44] LABS: BASOPHILS % (AUTO) 1.1 % (0.0-2.0); EOSINOPHILS % (AUTO) 2.3 % (0.0-6.0); HEMATOCRIT 26 % (39-51); HEMOGLOBIN 8.1 g/dL (13.5-17.5); LYMPHOCYTES % (AUTO) 38.2 % (20.0-44.0); MEAN CORPUSCULAR HGB CONC 31 g/dl (31.0-36.0); MEAN CORPUSCULAR VOLUME 74 fL (80-96); MONOCYTES # (AUTO) 0.2 K/uL (0.1-1.30); MONOCYTES % (AUTO) 9.7 % (2.0-12.0); NEUTROPHILS # (AUTO) 1.3 K/uL (1.8-8.9); NEUTROPHILS % (AUTO) 48.7 % (43.0-81.0); PLATELET COUNT (AUTO) 106 K/uL (150-450); RED BLOOD CELL COUNT(AUTO) 3.51 MIL/uL (4.5-6.0); WHITE BLOOD COUNT (AUTO) 2.6 K/uL (4.3-11.0)
[2022-02-14 08:00] VITALS: BP 111/59
[2022-02-14] MEDS: ENSURE CLEAR 237 ML LIQUID (MIX BERRY) PO SCH ×3 (08:13→17:49)
[2022-02-14] MEDS: CYANOCOBALAMIN 100 MCG TABLET PO SCH (08:13)
[2022-02-14] MEDS: FUROSEMIDE 40 MG/4 ML VIAL IV SCH (08:13)
[2022-02-14] MEDS: PANTOPRAZOLE 40 MG VIAL IV SCH ×2 (08:13→21:11)
[2022-02-14] MEDS: FOLIC ACID 1 MG TABLET PO SCH (08:13)
[2022-02-14 08:14] LABS: D-DIMER 3.68 mg/L(FEU (0.17-0.50)
[2022-02-14 08:29] LABS: CALCIUM, SERUM 8.4 mg/dL (8.5-10.1); CREATININE 0.7 mg/dL (0.6-1.3); POTASSIUM 3.4 mmol/L (3.5-5.1)
[2022-02-14 10:23] LABS: BASOPHILS % (MANUAL) 0 % (0.0-2.0); EOSINOPHILS % (MANUAL) 1 % (0-4); LYMPHOCYTES % (MANUAL) 28 % (16-48); MONOCYTES % (MANUAL) 9 % (0-11.0); NEUTROPHILS % (MANUAL) 62 (42-76)
[2022-02-14] MEDS ORDERED: POTASSIUM CHLORIDE 20 MEQ TAB.PRT.SR PO SCH (11:00)
--- NOTE | 2022-02-14 11:58 | NUR ---
rn note called pharmacy to switch potassium chloride tablet to powder form
[2022-02-14 12:00] VITALS: BP 106/55
[2022-02-14] MEDS ORDERED: POTASSIUM CHLORIDE 20 MEQ POWDER PACKET PO ONE (12:00)
[2022-02-14] MEDS: INSULIN REGULAR, HUMAN 100 UNIT/ML 3 ML VIAL SQ PRN ×2 (12:27→21:17)
[2022-02-14] MEDS: IRON SUCROSE COMPLEX 200 MG in IV NS 0.9% 100 ML IV SCH (13:58)
[2022-02-14 16:00] VITALS: BP 100/55
[2022-02-14 16:43] LABS: HEMOGLOBIN 7.8 g/dL (13.5-17.5)
[2022-02-14 18:32] LABS: OCCULT BLOOD STOOL NEGATIVE (NEGATIVE)
--- NOTE | 2022-02-14 19:29 | NUR ---
RADIOLOGY MANAGER closing NOTES patient in bed. pt alert and oriented x4. pt arabic speaking. able to make needs verbally responsive. pt no pain or signs of discomfort at this time. pt is on room air tolerating well at 95%. pt is on tele monitor sr .pt has iv on left arm.. iv intact, patent and flushing well. no signs of infiltration noted at this time. all safety measures in place. bed locked and in lowest position. bed alarm on.call light within reach. side rails up x2.endorsed to asic verification engineer rn for continuity of care
--- NOTE | 2022-02-14 19:30 | NUR ---
BOILERHOUSE MECHANIC NOTE RECEIVED PT IN BED A/OX3-4 , MAINLY [place] SPEAKING, AT BEDSIDE, ON RA, TOLERATING WELL, NO S/S OF DISTRESS, TELE MONITOR READING SR, IV ACCESS L ARM #20G, INTACT AND PATENT, PT ABLE TO MAKE NEEDS KNOWN, ALL SAFETY MEASURES IN PLACE, BED ALARM ON, BED IN LOW AND LOCK POSITION, CALL LIGHT AND TABLE WITHIN EASY REACH, SIDE RAILS UP X2. WILL CONTINUE TO MONITOR.
[2022-02-14 20:00] VITALS: BP 103/56
[2022-02-15] VITALS: BP 109/60
[2022-02-15 01:06] LABS: HEMOGLOBIN 7.9 g/dL (13.5-17.5)
[2022-02-15 04:00] VITALS: BP 109/53
--- NOTE | 2022-02-15 07:02 | NUR ---
RN CLOSING NOTE ALL SIGNIFICANT CHANGES THROUGHOUT SHIFT WAS DOCUMENTED. PT STABLE WILL ENDORSE TO MORNING SHIFT FOR CARY.
[2022-02-15] MEDS: BLOOD SUGAR DIAGNOSTIC 1 EACH STRIP IN SCH ×4 (07:41→22:32)
[2022-02-15] MEDS: ENSURE CLEAR 237 ML LIQUID (MIX BERRY) PO SCH ×3 (07:43→16:54)
[2022-02-15 08:00] VITALS: BP 112/53
--- NOTE | 2022-02-15 08:00 | NUR ---
rn notes received patient a/o x4, room air refused pain, bs-114 mg/dl, patient refused pain no bleeding noted, due medication administered, patient ambulatory self care, tolerated breakfast well, seen hospitalist patient also follow up with traffic division commanding officer. call light within to reach. will follow up.
[2022-02-15 08:29] LABS: HEMOGLOBIN 8.6 g/dL (13.5-17.5)
[2022-02-15] MEDS: FUROSEMIDE 40 MG/4 ML VIAL IV SCH (08:38)
[2022-02-15] MEDS: PANTOPRAZOLE 40 MG VIAL IV SCH ×2 (08:38→21:28)
[2022-02-15] MEDS: FOLIC ACID 1 MG TABLET PO SCH (08:38)
[2022-02-15] MEDS: CYANOCOBALAMIN 100 MCG TABLET PO SCH (08:38)
[2022-02-15 12:00] VITALS: BP 105/57
[2022-02-15] MEDS ORDERED: IRON SUCROSE COMPLEX 200 MG in IV NS 0.9% 100 ML IV SCH (14:00)
[2022-02-15] MEDS ORDERED: SOD FERRIC GLUC 125 MG in IV NS 0.9% 100 ML IV SCH (14:00)
--- NOTE | 2022-02-15 14:00 | NUR ---
rn notes patient npo at this time , scheduled US of abdomen compleat r/o splenic thrombosis
--- NOTE | 2022-02-15 15:00 | NUR ---
rn notse patient having us of spleen procedure at bedside.
[2022-02-15 16:00] VITALS: BP 101/55
[2022-02-15 16:58] LABS: BASOPHILS % (AUTO) 0.9 % (0.0-2.0); EOSINOPHILS % (AUTO) 3.1 % (0.0-6.0); HEMATOCRIT 29 % (39-51); HEMOGLOBIN 8.9 g/dL (13.5-17.5); LYMPHOCYTES # (AUTO) 1.2 K/uL (0.8-4.8); LYMPHOCYTES % (AUTO) 37.5 % (20.0-44.0); MEAN CORPUSCULAR HGB CONC 31 g/dl (31.0-36.0); MEAN CORPUSCULAR VOLUME 75 fL (80-96); MONOCYTES # (AUTO) 0.3 K/uL (0.1-1.30); MONOCYTES % (AUTO) 8.8 % (2.0-12.0); NEUTROPHILS # (AUTO) 1.6 K/uL (1.8-8.9); NEUTROPHILS % (AUTO) 49.7 % (43.0-81.0); PLATELET COUNT (AUTO) 110 K/uL (150-450); RED BLOOD CELL COUNT(AUTO) 3.89 MIL/uL (4.5-6.0); WHITE BLOOD COUNT (AUTO) 3.2 K/uL (4.3-11.0)
--- NOTE | 2022-02-15 18:35 | NUR ---
rn notes BS-90 MG/DL, PATIENT TOLERATING DINNER WELL, NO PAIN NOTES. USING BATHROOM. NEXT TO THE BED. CALL LIGHT WITHIN TO REACH. ENDORSED ONCOMING NURSE CARY.
--- NOTE | 2022-02-15 19:30 | NUR ---
HAND SPRING REPAIRER HELPER NOTE RECEIVED PT IN BED A/OX3-4 , MAINLY EQUATORIAL GUINEAN SPEAKING, AT BEDSIDE, ON RA, TOLERATING WELL, NO S/S OF DISTRESS, TELE MONITOR READING SR, IV ACCESS L ARM #20G, INTACT AND PATENT, PT ABLE TO MAKE NEEDS KNOWN, ALL SAFETY MEASURES IN PLACE, BED ALARM ON, BED IN LOW AND LOCK POSITION, CALL LIGHT AND TABLE WITHIN EASY REACH, SIDE RAILS UP X2. WILL CONTINUE TO MONITOR.
[2022-02-15 20:00] VITALS: BP 105/60
[2022-02-15] MEDS: INSULIN REGULAR, HUMAN 100 UNIT/ML 3 ML VIAL SQ PRN (22:32)
[2022-02-16] VITALS: BP 103/63
--- NOTE | 2022-02-16 00:45 | NUR ---
RN NOTE TRANSFER TO [facility]. REPORT GIVEN TO SANJANA
--- NOTE | 2022-02-16 01:10 | NUR ---
RN NOTES; RECIEVED PATIENT FROM [facility] IN RM 316-1 TELE,AOX4 MALTESE/LAO SPEAKING,AVA WELL ON RM AIR,NO SIGN SOB/DISTRESS NOTED,SATING 98%,BREATHING EVEN AND NONLABORED,NO COMPLAIN OF PAIN/DISCOMFORT AT THIS TIME,IV ACCESS ON LARM 20G PATENT AND INTACT,SAFEETY MEASURE IN PLACE,CALL LIGHT WITHIN REACH,WILL CONTINUE TO MONITOR.
[2022-02-16 03:47] LABS: BASOPHILS % (MANUAL) 0 % (0.0-2.0); EOSINOPHILS % (MANUAL) 5 % (0-4); LYMPHOCYTES % (MANUAL) 29 % (16-48); MONOCYTES % (MANUAL) 10 % (0-11.0); NEUTROPHILS % (MANUAL) 56 (42-76)
[2022-02-16] MEDS: BLOOD SUGAR DIAGNOSTIC 1 EACH STRIP IN SCH ×4 (06:33→21:16)
--- NOTE | 2022-02-16 06:39 | NUR ---
RN CLOSING NOTES; PATIENT IN BED AAOX4 MAORI/HUNGARIAN SPEAKING,AVA WELL ON RM AIR,NO SIGN SOB/DISTRESS NOTED,SATING 97%,BREATHING EVEN AND NONLABORED,NO COMPLAIN OF PAIN/DISCOMFORT AT THIS TIME,DUE MEDS GIVEN ORDER,ALL NEEDS ATTENDED,IV ACCESS ON LARM 20G PATENT AND INTACT,SAFEETY MEASURE IN PLACE,CALL LIGHT WITHIN REACH,WILL ENDORSED TO NEXT SHIFT.
[2022-02-16 07:04] LABS: EOSINOPHILS % (AUTO) 4.2 % (0.0-6.0); HEMATOCRIT 29 % (39-51); HEMOGLOBIN 8.9 g/dL (13.5-17.5); LYMPHOCYTES # (AUTO) 1.1 K/uL (0.8-4.8); LYMPHOCYTES % (AUTO) 35.7 % (20.0-44.0); MEAN CORPUSCULAR HGB CONC 31 g/dl (31.0-36.0); MEAN CORPUSCULAR VOLUME 75 fL (80-96); MONOCYTES # (AUTO) 0.2 K/uL (0.1-1.30); MONOCYTES % (AUTO) 7.9 % (2.0-12.0); NEUTROPHILS # (AUTO) 1.5 K/uL (1.8-8.9); NEUTROPHILS % (AUTO) 51.2 % (43.0-81.0); PLATELET COUNT (AUTO) 108 K/uL (150-450); RED BLOOD CELL COUNT(AUTO) 3.79 MIL/uL (4.5-6.0)
[2022-02-16 07:07] LABS: IMMUNOGLOBULIN A, SERUM 702 mg/dL (61-437); IMMUNOGLOBULIN G, SERUM 1825 mg/dL (603-1613)
[2022-02-16 07:21] LABS: CALCIUM, SERUM 8.8 mg/dL (8.5-10.1); CREATININE 0.9 mg/dL (0.6-1.3); PHOSPHORUS 4.4 mg/dL (2.5-4.9); POTASSIUM 3.7 mmol/L (3.5-5.1)
--- NOTE | 2022-02-16 07:35 | NUR ---
RN OPENING NOTE RECEIVED PATIENT AWAKE IN BED, EASILY BEING AROUSED. A/OX4. DOMINICAN/BELARUSIAN SPEAKING. PT ON RA AVA WELL, NO DISTRESS OR SHORTNESS OF BREATH NOTED. IV ACCESS: L ARM #20G, INTACT, AND PATENT, SL. BREATHING EVEN AND NON LABORED. NO COMPLAINTS OF PAIN/DISCOMFORT AT THIS TIME. SAFETY MEASURES IMPLEMENTED: CALL LIGHT AND TABLE WITHIN REACH, HOB ELEVATED, SIDE RAILS UP X 2, BED IN LOWEST AND LOCKED POSITION. WILL CONTINUE TO MONITOR AND ASSIST PATIENT.
[2022-02-16 07:37] LABS: D-DIMER 2.61 mg/L(FEU (0.17-0.50)
[2022-02-16 08:00] VITALS: BP 109/50
[2022-02-16] MEDS: PANTOPRAZOLE 40 MG TABLET.DR PO SCH ×2 (08:55→21:04)
[2022-02-16] MEDS: FOLIC ACID 1 MG TABLET PO SCH (08:55)
[2022-02-16] MEDS: ENSURE CLEAR 237 ML LIQUID (MIX BERRY) PO SCH ×3 (08:56→17:03)
[2022-02-16] MEDS: FUROSEMIDE 40 MG/4 ML VIAL IV SCH (08:56)
[2022-02-16] MEDS: CYANOCOBALAMIN 100 MCG TABLET PO SCH (09:44)
[2022-02-16 10:07] LABS: IMMUNOGLOBULIN M, SERUM <5 mg/dL (20-172)
[2022-02-16 12:00] VITALS: BP 110/66
[2022-02-16 12:06] LABS: *SPE A/G RATIO 0.8 (0.7-1.7); *SPE ALPHA-1-GLOBULIN 0.2 g/dL (0.0-0.4); *SPE ALPHA-2-GLOBULIN 0.4 g/dL (0.4-1.0); *SPE BETA GLOBULIN 1.1 g/dL (0.7-1.3); *SPE M-SPIKE Not Observed g/dL (Not Observed)
[2022-02-16] MEDS: INSULIN REGULAR, HUMAN 100 UNIT/ML 3 ML VIAL SQ PRN ×2 (12:25→21:17)
[2022-02-16 12:37] LABS: EOSINOPHILS % (MANUAL) 4 % (0-4); LYMPHOCYTES % (MANUAL) 32 % (16-48); MONOCYTES % (MANUAL) 6 % (0-11.0); NEUTROPHILS % (MANUAL) 58 (42-76)
--- NOTE | 2022-02-16 15:13 | NUR ---
RN NOTE SECOND TIME CALLING PHARMACY REGARDING IRON SUCROSE COMPLEX DUE @1400. PHARMACY WILL SEND IT UP WHEN IT IS READY.
[2022-02-16 16:00] VITALS: BP 116/75
[2022-02-16 16:04] LABS: HEMOGLOBIN 9.4 g/dL (13.5-17.5)
[2022-02-16] MEDS: IRON SUCROSE COMPLEX 200 MG in IV NS 0.9% 100 ML IV SCH (16:34)
--- NOTE | 2022-02-16 18:45 | NUR ---
RN CLOSING NOTE PATIENT AWAKE IN BED RESTING AT THE MOMENT A/O X 4. NO S/S OF PAIN NOTED AT THIS TIME. ON RA NO DISTRESS OR SHORTNESS OF BREATH NOTED. BREATHING EVEN AND NON LABORED. IV ACCESS LEFT ARM AND #20G, INTACT, PATENT AND FLUSHING WELL. PATIENT WITH EXTERNAL RETIREMENT ACTUARY. SCHEDULE MEDICATIONS ADMINISTERED. FALL AND SAFETY MEASURES IN PLACE: CALL LIGHT AND TABLE WITHIN REACH, SIDE RAILS UP X 2, BED IN LOWEST AND LOCKED POSITION. WILL ENDORSE TO NEXT SHIFT FOR CARY.
--- NOTE | 2022-02-16 19:30 | NUR ---
GEOGRAPHIC INFORMATION SYSTEMS ANALYST OPENING NOTE RECEIVED PATIENT IN BED, WITH HOB ELEVATED, ALERT AND ORIENTED X4, WITH AT BEDSIDE. AFEBRILE AND NOT IN ANY FORM OF ACUTE DISTRESS. BREATHING EVEN AND NON LABORED. NO C/O PAIN OR DISCOMFORT AT THIS TIME. BREATHING EVEN AND NON LABORED. ON TELE MONITORING. WITH IV ACCESS ON L ARM 20G-SL. SAFETY MEASURES IN PLACE. KEPT BED IN LOCKED AND IN LOW POSITION. SIDE RAILS UP X2. ADVISED TO USE THE CALL LIGHT WHEN IN NEED OF ASSISTANCE.
[2022-02-16 20:00] VITALS: BP 107/66
[2022-02-17] VITALS: BP 102/52
[2022-02-17 00:17] LABS: HEMOGLOBIN 8.9 g/dL (13.5-17.5)
[2022-02-17 04:00] VITALS: BP 104/60
[2022-02-17] MEDS: BLOOD SUGAR DIAGNOSTIC 1 EACH STRIP IN SCH ×3 (06:31→17:30)
--- NOTE | 2022-02-17 06:33 | NUR ---
METAL SPRAYER PROTECTIVE COATING CLOSING NOTE PATIENT IN BED, WITH HOB ELEVATED, ASLEEP BUT EASY TO AROUSE AND RESPONSIVE. AFEBRILE AND NOT IN ANY FORM OF ACUTE DISTRESS. BREATHING EVEN AND NON LABORED. NO C/O PAIN OR DISCOMFORT THROUGHOUT THE SHIFT. BREATHING EVEN AND NON LABORED. ON TELE MONITORING WITH CURRENT READING OF SR 75. WITH IV ACCESS ON L ARM 20G-SL. MONITORED FOR ANY S/SX. OF HYPO/HYPERGLYCEMIA. MEDICATED ORDERED. SAFETY MEASURES IN PLACE. KEPT BED IN LOCKED AND IN LOW POSITION. SIDE RAILS UP X2. ADVISED TO USE THE CALL LIGHT WHEN IN NEED OF ASSISTANCE. CONSTANT VISUAL CHECK DONE TO ENSURE SAFETY. ALL NURSING NEEDS ATTENDED. ENDORSED TO INCOMING SHIFT FOR CONTINUITY OF CARE.
--- NOTE | 2022-02-17 07:06 | NUR ---
MANAGER OPERATIONAL OPENING NOTES RECEIVED PATIENT SLEEPING IN BED, A/Ox4, DIVEHI SPEAKING. ABLE TO VERBALIZE NEEDS. ON ROOM AIR, NO S/S OF RESPIRATORY DISTRESS. PATIENT IS ON TELE MONITORING SHOWING SINUS RHYTHM HR 76. NO C/O OR S/S OF DISTRESS OR DISCOMFORT. IV ACCESS DANG #20 G SL. INTACT AND PATENT. PATIENT IS CONTINENT HAS BRP. SKIN IS INTACT. SAFETY MEASURES IN PLACE: BED LOCKED AND IN LOWEST POSITION, SIDE RAILS UPx2, CALL LIGHT WITHIN REACH, HOB ELEVATED. WILL CONTINUE TO MONITOR.
[2022-02-17 08:00] VITALS: BP 103/53
[2022-02-17] MEDS: FOLIC ACID 1 MG TABLET PO SCH (08:25)
[2022-02-17] MEDS: PANTOPRAZOLE 40 MG TABLET.DR PO SCH (08:25)
[2022-02-17] MEDS: CYANOCOBALAMIN 100 MCG TABLET PO SCH (08:25)
[2022-02-17] MEDS: FUROSEMIDE 40 MG/4 ML VIAL IV SCH (08:25)
[2022-02-17] MEDS: ENSURE CLEAR 237 ML LIQUID (MIX BERRY) PO SCH ×3 (08:28→18:07)
[2022-02-17 08:56] LABS: HEMOGLOBIN 9.8 g/dL (13.5-17.5)
[2022-02-17] MEDS: INSULIN REGULAR, HUMAN 100 UNIT/ML 3 ML VIAL SQ PRN (11:52)
[2022-02-17 12:00] VITALS: BP 115/56
[2022-02-17] MEDS ORDERED: FERR325T23 PO (13:14)
[2022-02-17 16:00] VITALS: BP 109/49
--- NOTE | 2022-02-17 18:35 | NUR ---
ERRAND RUNNER NOTES PATIENT DC HOME. STABLE A/Ox4, GEORGIAN SPEAKING ABLE TO MAKE NEEDS KNOWN. PATIENT STABLE ON ROOM AIR NO S/S OF RESPIRATORY DISTRESS OR DISCOMFORT. PATIENT HEALTH TEACHINGS AND DISCHARGE INSTRUCTIONS EXPLAINED TO PATIENT AND FAMILY. PATIENT VERBALIZED UNDERSTANDING. PATIENT SIGNED ALL FORMS AND FILED INTO CHART. PATIENT IV ACCESS REMOVED AND PRESSURE DRESSING APPLIED. ID BAND REMOVED. SKIN INTACT. PATIENT LEFT ACCOMPANIED BY BROTHER VIA WHEELCHAIR WITH JOSS TONY @[id number]. CHARGE NURSE AND MD AWARE OF DISCHARGE.
== END 2022-02-17 18:29 | disposition home or self-care (01) | DRG 241 ==
LOC: ER 16:06 → TELE1 20:59 → TELE 02-16 00:51
PROVIDERS: ADMIT Nurse Practitioner Acute Care; ATTEND Nurse Practitioner Acute Care
PROC: 30233N1 Transfusion of Nonautologous Red Blood Cells into Peripheral Vein, Percutaneous Approach (ICD-10-PCS; 2022-02-11)
PROC: 0DJ08ZZ Inspection of Upper Intestinal Tract, Via Natural or Artificial Opening Endoscopic (ICD-10-PCS; principal; 2022-02-13)
PROC: 30233P1 Transfusion of Nonautologous Frozen Red Cells into Peripheral Vein, Percutaneous Approach (ICD-10-PCS; 2022-02-13)
PROC: 05HC33Z Insertion of Infusion Device into Left Basilic Vein, Percutaneous Approach (ICD-10-PCS; 2022-02-16)
DX: K25.4 Chronic or unspecified gastric ulcer with hemorrhage (principal); D65 Disseminated intravascular coagulation [defibrination syndrome]; D61.818 Other pancytopenia; E44.0 Moderate protein-calorie malnutrition; I50.33 Acute on chronic diastolic (congestive) heart failure; K29.70 Gastritis, unspecified, without bleeding; J81.1 Chronic pulmonary edema; D62 Acute posthemorrhagic anemia; I86.4 Gastric varices; F10.11 Alcohol abuse, in remission; K70.30 Alcoholic cirrhosis of liver without ascites; E11.9 Type 2 diabetes mellitus without complications; E88.09 Other disorders of plasma-protein metabolism, not elsewhere classified; I70.0 Atherosclerosis of aorta; Z79.899 Other long term (current) drug therapy; Z85.038 Personal history of other malignant neoplasm of large intestine; Z20.822 Contact with and (suspected) exposure to COVID-19; Z79.84 Long term (current) use of oral hypoglycemic drugs
CPT/HCPCS: 36415; 71045-TC; 76700-TC; 76705-TC; 80048-TC; 80076-TC; 82272-TC; 82607-TC; 82728-TC; 82784; 82962-TC; 83540-TC; 83735-TC; 83880; 84100-TC; 84155; 84165; 84443-TC; 84484-TC; 85025-TC; 85027-TC; 85396; 85730-TC; 86140-TC; 86225; 86235; 86334; 86431-TC; 86706; 86803; 86850-TC; 87081-TC; 87340; 87806; 93970-TC; C9113; C9803; G0378; J1756; J1815; J1940; J2704; J2916; J3490; J7030; J7050; P9016; P9017

== ENCOUNTER 2022-08-31 08:25 | Inpatient (IN) | payer OTHER ==
[~2022-08-31] VITALS: Ht 170.2 cm; Wt 81.1 kg
[~2022-08-31 08:25] MED LIST changes: +CYAN100T44 PO; +FERR325T23 PO; -LOPE2CAP40 PO; +METF1000 PO; -ONDA4TAB11 PO; -PANT40TA2 PO; +PANT40TA49 PO; -SOD FERRIC GLUC 125 MG in IV NS 0.9% 100 ML IV SCH
--- NOTE | 2022-08-31 08:32 | NUR ---
PT WALKED INTO ER C/O EPIGASTRIC PAIN X 3 DAYS WITH NAUSEA. PT IS BREATHING EVEN AND UNLABORED. AMBULATORY WITH STEADY GAIT. AAOX4. CONNECTED TO MONITOR VITAL SIGNS WNL.
--- NOTE | 2022-08-31 08:53 | NUR ---
IV ACCESS ESTABLISHED 18G LEFT AC. BLOOD DRAWN AND SENT TO LAB.
--- NOTE | 2022-08-31 08:55 | NUR ---
URINE SAMPLE COLLECTED AND SENT TO LAB
[2022-08-31] MEDS ORDERED: ONDANSETRON HCL/PF 4 MG/2 ML VIAL ONE (08:57)
[2022-08-31] MEDS ORDERED: PANTOPRAZOLE 80 MG in IV NS 0.9% 500 ML IV ONE (09:00)
[2022-08-31] MEDS ORDERED: OCTREOTIDE 50 MCG/ML AMPUL IV ONE (09:00)
[2022-08-31] MEDS ORDERED: ONDANSETRON HCL/PF 4 MG/2 ML VIAL IVP ONE (09:00)
[2022-08-31] MEDS ORDERED: IV NS 0.9% 1,000 ML BAG IV ONE (09:00)
[2022-08-31 09:25] LABS: BASOPHILS # (AUTO) 0.1 K/uL (0.0-0.2); BASOPHILS % (AUTO) 2.3 % (0.0-2.0); HEMATOCRIT 34 % (39-51); HEMOGLOBIN 11.7 g/dL (13.5-17.5); LYMPHOCYTES # (AUTO) 0.2 K/uL (0.8-4.8); LYMPHOCYTES % (AUTO) 4.6 % (20.0-44.0); MEAN CORPUSCULAR HGB CONC 34 g/dl (31.0-36.0); MEAN CORPUSCULAR VOLUME 100 fL (80-96); MONOCYTES # (AUTO) 0.2 K/uL (0.1-1.30); MONOCYTES % (AUTO) 4.1 % (2.0-12.0); PLATELET COUNT (AUTO) 78 K/uL (150-450); RED BLOOD CELL COUNT(AUTO) 3.43 MIL/uL (4.5-6.0); WHITE BLOOD COUNT (AUTO) 5.1 K/uL (4.3-11.0)
[2022-08-31 09:31] LABS: BILIRUBIN,URINE 1+ (NEGATIVE); COLOR,URINE DARK YELLOW (YELLOW); LEUKOCYTE ESTERASE ,URINE NEGATIVE (NEGATIVE); NITRITE, URINE NEGATIVE (NEGATIVE); PROTEIN,URINE NEGATIVE (NEGATIVE); UGLUCOSE 2+ mg/dL (NEGATIVE)
[2022-08-31 09:32] LABS: CALCIUM, SERUM 9.2 mg/dL (8.5-10.1); CREATININE 0.9 mg/dL (0.6-1.3); POTASSIUM 4.4 mmol/L (3.5-5.1)
[2022-08-31 09:40] LABS: BILIRUBIN,DIRECT 1.1 mg/dL (0.0-0.2); BILIRUBIN,TOTAL 2.4 mg/dL (0.2-1.0); TOTAL PROTEIN, SERUM 8.1 g/dL (6.4-8.2)
[2022-08-31 09:53] LABS: BACTERIA,URINE Rare /HPF (None Seen); SQUAMOUS EPITHELIAL CELL,UR Few /HPF (None Seen); WBC,URINE 0-2 /HPF (0-3)
--- NOTE | 2022-08-31 10:39 | NUR ---
XRAY AT BEDSIDE
--- NOTE | 2022-08-31 12:05 | NUR ---
MOVE SHEET SUBMITTED.
--- NOTE | 2022-08-31 13:29 | NUR ---
GOT BED 103.
[2022-08-31 13:49] LABS: BASOPHILS % (MANUAL) 0 % (0.0-2.0); EOSINOPHILS % (MANUAL) 11 % (0-4); LYMPHOCYTES % (MANUAL) 3 % (16-48); MONOCYTES % (MANUAL) 5 % (0-11.0); NEUTROPHILS % (MANUAL) 81 (42-76)
--- NOTE | 2022-08-31 13:51 | NUR ---
REPORT GIVEN TO ROBERT ANTHONY
--- NOTE | 2022-08-31 14:00 | NUR ---
HEEL BUILDER NOTE ADMIT 62 YEARS OLD MALE TO ROOM 103 ON MED-SURG MONITORING,ALERT ORIENTED X4 VERBALLY RESPONSIVE ON ROOM AIR ADMITTING DIAGNOSIS IS GI BLEEDING,AMBULATORY CONTIENT BOWEL/BLADDER,IV ACCESS ON LEFT AC INTACT PATENT,SAFETY MEASURE IMPLEMENT BED IN LOW POSITON AND LOCKED CALL LIGHT WITHIN REACH CONTINUE TO MONITOR.
--- NOTE | 2022-08-31 14:01 | NUR ---
PT TRANSPORTED UP TO ROOM 103 VIA [facility]
[2022-08-31 14:09] VITALS: BP 116/64; TEMP 99.2
[2022-08-31] MEDS ORDERED: Z GUARD REMEDY 4 OZ OINT TP PRN (15:00)
[2022-08-31] MEDS ORDERED: ONDANSETRON HCL/PF 4 MG/2 ML VIAL IVP PRN (15:00)
[2022-08-31] MEDS ORDERED: MORPHINE SULFATE INJ 2 MG/ML DISP.SYRIN IV PRN (15:00)
[2022-08-31] MEDS ORDERED: LORAZEPAM INJ 2 MG/ML VIAL IV PRN (15:00)
[2022-08-31] MEDS: IV NS 0.9% 1,000 ML IV PRN (15:07)
[2022-08-31] MEDS ORDERED: DEXTROSE 50%-WATER 50 ML DISP.SYRIN IV PRN (15:30)
[2022-08-31 16:00] VITALS: BP 130/71; TEMP 98.9
[2022-08-31] MEDS: Thiamine 100 MG in IV D5W 50 ML IV SCH (16:36)
[2022-08-31] MEDS: BLOOD SUGAR DIAGNOSTIC 1 EACH STRIP IN SCH ×2 (17:30→23:40)
--- NOTE | 2022-08-31 18:31 | NUR ---
RN NOTE PATIENT REMAINS ALERT ORIENTED X4 VERBALLY RESPONSIVE NO SOB NOT ACUTE DISTRESS NOTED ALL DUE MEDS GIVEN MD ORDERED,ON ROOM AIR O2:99% IV ACCESS ON LAC INTACT PATENT,ON IV HYDRATION NS 75CC/HR KEPT CALL LIGHT WITHIN REACH,KEPT HEAD OFT THE BED ELEVATED,ENDORSE NEXT COMING SHIFT FOR CONTINUATION OF CARE.
--- NOTE | 2022-08-31 19:30 | NUR ---
MS RN OPENING NOTE RECEIVED PATIENT FROM AM NURSE; PATIENT AWAKE IN BED, A/O X 4, ABLE TO MAKE NEEDS KNOWN; STABLE ON ROOM AIR, BREATHING EVENLY AND NO S/S OF DISTRESS NOTED; WITH IV ACCESS AT LEFT AC G#18 RUNNING WITH NORMAL SALINE AT 75 ML/HR; ENCOURAGED VERBALIZATION OF NEEDS; SAFETY MEASURES IMPLEMENTED, BED LOCKED IN LOWEST POSITION, SIDE RAILS UP X 2, CALL LIGHT WITHIN REACH; WILL CONTINUE TO MONITOR THROUGHOUT SHIFT
[2022-08-31] MEDS: PANTOPRAZOLE 40 MG VIAL IV SCH (20:30)
[2022-08-31] MEDS: INSULIN REGULAR, HUMAN 100 UNIT/ML 3 ML VIAL SQ PRN (23:41)
[2022-09-01 04:00] VITALS: BP 100/60; TEMP 98.6
[2022-09-01] MEDS: IV NS 0.9% 1,000 ML IV PRN ×2 (04:16→17:10)
[2022-09-01] MEDS: BLOOD SUGAR DIAGNOSTIC 1 EACH STRIP IN SCH ×4 (05:42→21:24)
--- NOTE | 2022-09-01 06:46 | NUR ---
MS RN CLOSING NOTE PATIENT IN BED, A/O X 4, ABLE TO MAKE NEEDS KNOWN; STABLE ON ROOM AIR, BREATHING EVENLY AND NO S/S OF DISTRESS NOTED; WITH IV ACCESS AT LEFT AC G#18 RUNNING WITH NORMAL SALINE AT 75 ML/HR; ADMINISTERED MEDICATIONS PRESCRIBED; MAINTAINED ON NPO POST MIDNIGHT; PATIENT'S NEEDS ATTENDED; MONITORED PATIENT ACCORDINGLY; SAFETY MEASURES IMPLEMENTED, BED LOCKED IN LOWEST POSITION, SIDE RAILS UP X 2, CALL LIGHT WITHIN REACH; WILL ENDORSE TO AM NURSE FOR CARY.
--- NOTE | 2022-09-01 07:10 | NUR ---
RN NOTE RECEIVED PATIENT IN BED RESTING ALERT ORIENTEDX4 VERBALLY RESPONSIVE ON ROOM AIR IV ACCESS ON LEFT AC INTACT PATENT ON IV HYDRATION NS 75CC/HR,CONTIENT BOWEL/BLADDER SAFETY MEASURE IMPLMENT BED IN LOW POSITION AND LOCKED,CALL LIGHT WITHIN REACH,HEAD OF THE BED ELEVATED CONTINUE TO MONITOR.
[2022-09-01 07:21] LABS: CALCIUM, SERUM 8.1 mg/dL (8.5-10.1); CREATININE 0.7 mg/dL (0.6-1.3); MAGNESIUM 1.7 mg/dL (1.8-2.4); PHOSPHORUS 3.9 mg/dL (2.5-4.9); POTASSIUM 3.6 mmol/L (3.5-5.1)
[2022-09-01 07:23] LABS: BASOPHILS % (AUTO) 0.5 % (0.0-2.0); EOSINOPHILS % (AUTO) 2.8 % (0.0-6.0); HEMATOCRIT 29 % (39-51); HEMOGLOBIN 10.1 g/dL (13.5-17.5); LYMPHOCYTES # (AUTO) 1.2 K/uL (0.8-4.8); LYMPHOCYTES % (AUTO) 37.2 % (20.0-44.0); MEAN CORPUSCULAR HGB CONC 35 g/dl (31.0-36.0); MEAN CORPUSCULAR VOLUME 100 fL (80-96); MONOCYTES # (AUTO) 0.3 K/uL (0.1-1.30); MONOCYTES % (AUTO) 8.5 % (2.0-12.0); NEUTROPHILS # (AUTO) 1.6 K/uL (1.8-8.9); PLATELET COUNT (AUTO) 70 K/uL (150-450); RED BLOOD CELL COUNT(AUTO) 2.91 MIL/uL (4.5-6.0); WHITE BLOOD COUNT (AUTO) 3.2 K/uL (4.3-11.0)
[2022-09-01] MEDS: PANTOPRAZOLE 40 MG VIAL IV SCH ×2 (08:04→21:23)
[2022-09-01] MEDS ORDERED: Magnesium 1GM/D5W 100ML PREMIX 100 ML IV SCH (09:00)
[2022-09-01] MEDS ORDERED: Magnesium 1GM/D5W 100ML PREMIX PIGGYBACK IV ONE (09:00)
[2022-09-01 12:00] VITALS: BP 100/60; TEMP 98.2
[2022-09-01 13:09] LABS: BAND % (MANUAL) 5 % (0.0-5.0); BASOPHILS % (MANUAL) 0 % (0.0-2.0); EOSINOPHILS % (MANUAL) 3 % (0-4); LYMPHOCYTES % (MANUAL) 39 % (16-48); MONOCYTES % (MANUAL) 9 % (0-11.0); NEUTROPHILS % (MANUAL) 49 (42-76)
[2022-09-01 14:24] LABS: HEMOGLOBIN 10.4 g/dL (13.5-17.5)
[2022-09-01] MEDS: Thiamine 100 MG in IV D5W 50 ML IV SCH (15:25)
--- NOTE | 2022-09-01 18:33 | NUR ---
RN NOTE PATIENT REMAINS ALERT ORIENTED X4 VERBALLY RESPONSIVE NO SOB NOT ACUTE DISTRESS NOTED NPO FOR EGD,AMBUALTORY ALL DUE MEDS GIVEN MD ORDERED ENDORSE NEXT COMING SHIFT FOR CONTINUATION OF CARE
--- NOTE | 2022-09-01 19:00 | NUR ---
RN NOTE PATIENT TRANSFERED TO OR FOR EGD,NOTIFIED INCOMING RN.
--- NOTE | 2022-09-01 19:43 | NUR ---
MS CARVAJAL RN NOTE PATIENT GETTING EGD AT THIS TIME, WILL AWAIT RETURN
[2022-09-01 20:45] VITALS: BP 125/71; TEMP 97.5
--- NOTE | 2022-09-01 20:45 | NUR ---
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 PATIENT ALERT/ORIENTED X 4, PATIENT PRIMARILY HUNGARIAN SPEAKING, ABLE TO MAKE NEEDS KNOWN. PATIENT STABLE ON RA, NO S/S OF DISTRESS OR SOB NOTED, BREATHING EVEN AND UNLABORED. VITAL SIGNS WNL. IV ACCESS ON LEFT AC # 18G INTACT AND FLUSHING WELL, CONNECTED PATIENT BACK TO IVF INFUSING NS @ 75 ML/HR. PER DR. KC ORDER FOR REGULAR DIET, NO OTHER ORDERS, ORDER CARRIED OUT. SAFETY MEASURES IN PLACE: CALL LIGHT WITHIN REACH, SIDE RAILS UP X 3, BED LOCKED IN LOWEST POSITION, BED ALARM ON. WILL CONTINUE TO MONITOR PATIENT
[2022-09-01] MEDS: INSULIN REGULAR, HUMAN 100 UNIT/ML 3 ML VIAL SQ PRN (21:34)
[2022-09-02 00:02] VITALS: BP 138/71; TEMP 97.6
[2022-09-02 04:45] VITALS: BP 104/54; TEMP 97.6
--- NOTE | 2022-09-02 06:43 | NUR ---
MS RN CLOSING NOTE PATIENT SLEEPING IN BED, ALERT/ORIENTED X 4, PRIMARILY TAJIK SPEAKING, PATIENT ABLE TO MAKE NEEDS KNOWN. PATIENT STABLE ON RA, NO S/S OF DISTRESS OR SOB NOTED, BREATHING EVEN AND UNLABORED. IV ACCESS ON LAC #18G INTACT AND INFUSING NS @ 75 ML/HR. NO SIGNIFICANT CHANGES THIS SHIFT, MEDICATIONS GIVEN ORDERED, PT NEEDS MET THROUGHOUT SHIFT. SAFETY MEASURES IN PLACE: CALL LIGHT WITHIN REACH, SIDE RAILS UP X 2, BED LOCKED IN LOWEST POSITION, HOB ELEVATED, BED ALARM ON. WILL ENDORSE TO DAYSHIFT RN FOR CONTINUITY OF CARE
[2022-09-02 06:52] LABS: BASOPHILS % (AUTO) 0.5 % (0.0-2.0); EOSINOPHILS % (AUTO) 2.9 % (0.0-6.0); HEMATOCRIT 29 % (39-51); HEMOGLOBIN 9.9 g/dL (13.5-17.5); LYMPHOCYTES # (AUTO) 0.9 K/uL (0.8-4.8); LYMPHOCYTES % (AUTO) 35.6 % (20.0-44.0); MEAN CORPUSCULAR HGB CONC 34 g/dl (31.0-36.0); MEAN CORPUSCULAR VOLUME 101 fL (80-96); MONOCYTES # (AUTO) 0.3 K/uL (0.1-1.30); MONOCYTES % (AUTO) 10.6 % (2.0-12.0); NEUTROPHILS # (AUTO) 1.2 K/uL (1.8-8.9); NEUTROPHILS % (AUTO) 50.4 % (43.0-81.0); PLATELET COUNT (AUTO) 67 K/uL (150-450); RED BLOOD CELL COUNT(AUTO) 2.86 MIL/uL (4.5-6.0); WHITE BLOOD COUNT (AUTO) 2.4 K/uL (4.3-11.0)
[2022-09-02] MEDS: IV NS 0.9% 1,000 ML IV PRN (06:58)
[2022-09-02 07:11] LABS: CALCIUM, SERUM 8.1 mg/dL (8.5-10.1); CREATININE 0.7 mg/dL (0.6-1.3); MAGNESIUM 1.9 mg/dL (1.8-2.4); POTASSIUM 3.8 mmol/L (3.5-5.1)
--- NOTE | 2022-09-02 07:35 | NUR ---
MS RN OPENING NOTE RECEIVED PATIENT SLEEPING IN BED, ALERT/ORIENTED X 4, PRIMARILY THAI SPEAKING, PATIENT ABLE TO MAKE NEEDS KNOWN. PATIENT STABLE ON RA, NO S/S OF DISTRESS OR SOB NOTED, BREATHING EVEN AND UNLABORED. IV ACCESS ON LAC #18G INTACT AND INFUSING NS @ 75 ML/HR. SAFETY MEASURES IN PLACE: CALL LIGHT WITHIN REACH, SIDE RAILS UP X 2, BED LOCKED IN LOWEST POSITION, HOB ELEVATED, BED ALARM ON. PLAN OF CARE CONTINUE.
[2022-09-02] MEDS: BLOOD SUGAR DIAGNOSTIC 1 EACH STRIP IN SCH (07:58)
[2022-09-02] MEDS: PANTOPRAZOLE 40 MG VIAL IV SCH (08:29)
[2022-09-02] MEDS ORDERED: THIAMINE HCL 100 MG TABLET PO SCH (09:00)
[2022-09-02] MEDS: INSULIN REGULAR, HUMAN 100 UNIT/ML 3 ML VIAL SQ PRN (09:46)
[2022-09-02] MEDS ORDERED: THIA100T70 PO (11:02)
[2022-09-02] MEDS ORDERED: PANT40TA2 PO (11:02)
[2022-09-02] MEDS ORDERED: CARV6.25 PO (11:02)
--- NOTE | 2022-09-02 11:46 | NUR ---
DISCHARGE SUMMARY INSTRUCTIONS REVIEWED WITH THE PATIENT WITH [place]EN[place] SPEAKING [place], PATIENT AND 'S CONFIRMED UNDERSTANDING, INFORMED THAT MEDICATION WAS SENT TO THE PHARMACY OR CHOICE, INSTRUCTED PATIENT TO FOLLOW UP WITH PRIMARY CARE PHYSICIAN ABOUT THE PROCEDURE. INSTRUCTED TO STOP USING NSAIDS AND ASPIRIN. PATIENT WILL EAT LUNCH FIRST AND LEAVE WITH . PATIENT SIGNED ALL DISCHARGE PAPER WORKS AND INVENTORY LIST.
[2022-09-02] MEDS ORDERED: SUCR1TAB31 PO (11:50)
--- NOTE | 2022-09-02 12:40 | NUR ---
RELEASED ALL PERSONAL BELONGINGS AND DISCHARGE PAPER WORKS TO THE PATIENT, PATIENT EXITED THE HOSPITAL VIA PRIVATE CAR ACCOMPANIED BY .
[2022-09-02 13:25] LABS: BASOPHILS % (MANUAL) 0 % (0.0-2.0); EOSINOPHILS % (MANUAL) 2 % (0-4); LYMPHOCYTES % (MANUAL) 31 % (16-48); MONOCYTES % (MANUAL) 11 % (0-11.0); NEUTROPHILS % (MANUAL) 56 (42-76)
[2022-09-02] MEDS ORDERED: PANTOPRAZOLE 40 MG TABLET.DR PO SCH (21:00)
== END 2022-09-02 12:40 | disposition home or self-care (01) ==
LOC: ER 08:27 → MEDSG1 13:36
PROVIDERS: ADMIT Nurse Practitioner Acute Care; ATTEND Nurse Practitioner Acute Care
PROC: 0DJ08ZZ Inspection of Upper Intestinal Tract, Via Natural or Artificial Opening Endoscopic (ICD-10-PCS; principal; 2022-09-01)
DX: K74.60 Unspecified cirrhosis of liver (principal); I85.11 Secondary esophageal varices with bleeding; D61.818 Other pancytopenia; K76.6 Portal hypertension; E44.0 Moderate protein-calorie malnutrition; E88.09 Other disorders of plasma-protein metabolism, not elsewhere classified; I86.4 Gastric varices; K31.89 Other diseases of stomach and duodenum; D53.9 Nutritional anemia, unspecified; K76.0 Fatty (change of) liver, not elsewhere classified; F10.10 Alcohol abuse, uncomplicated; E11.9 Type 2 diabetes mellitus without complications; Z79.84 Long term (current) use of oral hypoglycemic drugs; I10 Essential (primary) hypertension; E66.9 Obesity, unspecified; Z79.899 Other long term (current) drug therapy; Z85.038 Personal history of other malignant neoplasm of large intestine
CPT/HCPCS: 36415; 71045-TC; 80048-TC; 80076-TC; 81001; 82962-TC; 83690-TC; 83735-TC; 84100-TC; 85025-TC; 85027-TC; 85730-TC; 86850-TC; A4223; C9113; G0378; J1815; J2354; J2405; J2704; J3411; J3475; J3490; J7030; J7040; J7050; J7060

== ENCOUNTER 2023-05-15 09:35 | Inpatient (IN) | payer OTHER ==
[~2023-05-15] VITALS: Ht 170.2 cm; Wt 82.1 kg
[~2023-05-15 09:35] MED LIST changes: +CARV6.25 PO; -DICY20TA11 PO; -FERR325T23 PO; +PANT40TA2 PO; +SUCR1TAB31 PO; +THIA100T70 PO
[2023-05-15] MEDS ORDERED: ONDANSETRON HCL/PF 4 MG/2 ML VIAL ONE (09:51)
[2023-05-15] MEDS: IV NS 0.9% 1,000 ML BAG IV ONE (09:55)
[2023-05-15] MEDS: ONDANSETRON HCL/PF 4 MG/2 ML VIAL IVP ONE (09:56)
[2023-05-15] MEDS ORDERED: OCTREOTIDE 1,250 MCG in IV NS 0.9% 250 ML IV ONE (10:00)
[2023-05-15 10:10] LABS: BASOPHILS % (AUTO) 0.6 % (0.0-2.0); EOSINOPHILS # (AUTO) 0.2 K/uL (0.0-0.7); EOSINOPHILS % (AUTO) 2.1 % (0.0-6.0); HEMATOCRIT 26 % (39-51); HEMOGLOBIN 8.8 g/dL (13.5-17.5); LYMPHOCYTES # (AUTO) 2.8 K/uL (0.8-4.8); LYMPHOCYTES % (AUTO) 37.6 % (20.0-44.0); MEAN CORPUSCULAR HEMOGLOBIN 35 PG (26.0-33.0); MEAN CORPUSCULAR HGB CONC 35 g/dl (31.0-36.0); MEAN CORPUSCULAR VOLUME 103 fL (80-96); MONOCYTES # (AUTO) 0.4 K/uL (0.1-1.30); MONOCYTES % (AUTO) 5.4 % (2.0-12.0); NEUTROPHILS # (AUTO) 4.1 K/uL (1.8-8.9); NEUTROPHILS % (AUTO) 54.3 % (43.0-81.0); PLATELET COUNT (AUTO) 67 K/uL (150-450); RED BLOOD CELL COUNT(AUTO) 2.49 MIL/uL (4.5-6.0); RED CELL DISTRIBUTION WIDTH 15.8 % (11.5-15.0); WHITE BLOOD COUNT (AUTO) 7.6 K/uL (4.3-11.0)
[2023-05-15] MEDS: OCTREOTIDE 50 MCG/ML AMPUL IV ONE (10:20)
[2023-05-15] MEDS: PANTOPRAZOLE 80 MG in IV NS 0.9% 100 ML IV ONE (10:25)
[2023-05-15 10:29] LABS: ALANINE AMINOTRANSFERASE 31 U/L (12-78); ALBUMIN 2.3 g/dL (3.4-5.0); ALKALINE PHOSPHATASE 155 U/L (46-116); ASPARTATE AMINOTRANSFERASE 58 U/L (15-37); BILIRUBIN,DIRECT 1.6 mg/dL (0.0-0.2); CALCIUM, SERUM 8.7 mg/dL (8.5-10.1); CARBON DIOXIDE 20 mmol/L (21-32); CHLORIDE 108 mmol/L (98-107); CREATININE 0.7 mg/dL (0.6-1.3); GLUCOSE 173 mg/dL (74-106); LIPASE 30 U/L (16-77); POTASSIUM 4.5 mmol/L (3.5-5.1); SODIUM SERUM 138 mmol/L (136-145); TOTAL PROTEIN, SERUM 6.5 g/dL (6.4-8.2); UREA NITROGEN, BLOOD 31 mg/dL (7-18)
[2023-05-15 10:30] LABS: INR 1.67 (0.91-1.10); PARTIAL THROMBOPLASTIN TIME 29.9 SEC (24.3-34.3); PROTHROMBIN TIME 17.1 SECS (9.2-11.1)
[2023-05-15] MEDS: PANTOPRAZOLE 80 MG in IV NS 0.9% 500 ML IV ONE (10:30)
[2023-05-15 10:35] LABS: LACTIC ACID 2.6 mmol/L (0.4-2.0)
[2023-05-15] MEDS ORDERED: FERR325T23 PO (10:35)
[2023-05-15] MEDS ORDERED: METF-440 PO (10:35)
[2023-05-15] MEDS ORDERED: CARV6.25 PO (10:35)
[2023-05-15] MEDS: OCTREOTIDE 1,250 MCG in IV NS 0.9% 250 ML IV ONE (10:50)
[2023-05-15] MEDS ORDERED: PANTOPRAZOLE 80 MG in IV NS 0.9% 500 ML IV PRN (13:00)
[2023-05-15] MEDS ORDERED: OCTREOTIDE 1,250 MCG in IV NS 0.9% 247.5 ML IV PRN ×2 (13:00→17:30)
[2023-05-15 13:02] LABS: ANISOCYTOSIS 1+; BASOPHILS % (MANUAL) 0 % (0.0-2.0); EOSINOPHILS % (MANUAL) 2 % (0-4); LYMPHOCYTES % (MANUAL) 28 % (16-48); MONOCYTES % (MANUAL) 9 % (0-11.0); NEUTROPHILS % (MANUAL) 61 (42-76); PLATELET ESTIMATE DECREASED
[2023-05-15] MEDS ORDERED: ANESTHESIA TRAY IN PYXIS 1 EA TRAY MC ONE (15:22)
[2023-05-15 16:45] VITALS: BP 122/62; O2SAT 100
[2023-05-15 17:00] VITALS: BP 128/62; O2SAT 100
[2023-05-15 17:15] VITALS: BP 130/64; O2SAT 100
[2023-05-15] MEDS: PROPRANOLOL HCL 10 MG TABLET PO SCH (19:00)
[2023-05-15 19:45] VITALS: BP 118/58; TEMP 98.6; O2SAT 100
[2023-05-15 20:00] VITALS: BP 118/58; TEMP 98.6; O2SAT 100
[2023-05-15] MEDS: IV NS 0.9% 1,000 ML IV PRN (20:58)
[2023-05-15] MEDS: CEFTRIAXONE 1 G in IV D5W 50 ML IV SCH (21:46)
[2023-05-15] MEDS: PANTOPRAZOLE 40 MG VIAL ONE (22:57)
[2023-05-15] MEDS: PANTOPRAZOLE 80 MG in IV NS 0.9% 500 ML IV PRN (23:13)
[2023-05-16] VITALS (16 sets, daily range): BP systolic 95–119; BP diastolic 33–63; TEMP 97.7–99.7; O2SAT 97–100
[2023-05-16 07:24] LABS: CALCIUM, SERUM 7.3 mg/dL (8.5-10.1); CREATININE 0.8 mg/dL (0.6-1.3); MAGNESIUM 1.5 mg/dL (1.8-2.4); PHOSPHORUS 3.6 mg/dL (2.5-4.9); POTASSIUM 3.9 mmol/L (3.5-5.1)
[2023-05-16 07:55] LABS: BASOPHILS % (AUTO) 0.5 % (0.0-2.0); EOSINOPHILS # (AUTO) 0.1 K/uL (0.0-0.7); EOSINOPHILS % (AUTO) 3.1 % (0.0-6.0); LYMPHOCYTES # (AUTO) 1.8 K/uL (0.8-4.8); LYMPHOCYTES % (AUTO) 39.7 % (20.0-44.0); MEAN CORPUSCULAR HEMOGLOBIN 35 PG (26.0-33.0); MEAN CORPUSCULAR HGB CONC 34 g/dl (31.0-36.0); MEAN CORPUSCULAR VOLUME 103 fL (80-96); MONOCYTES # (AUTO) 0.3 K/uL (0.1-1.30); MONOCYTES % (AUTO) 7.4 % (2.0-12.0); NEUTROPHILS # (AUTO) 2.3 K/uL (1.8-8.9); NEUTROPHILS % (AUTO) 49.3 % (43.0-81.0); PLATELET COUNT (AUTO) 57 K/uL (150-450); RED CELL DISTRIBUTION WIDTH 15.8 % (11.5-15.0); WHITE BLOOD COUNT (AUTO) 4.6 K/uL (4.3-11.0)
[2023-05-16 08:05] LABS: RED BLOOD CELL COUNT(AUTO) 1.89 MIL/uL (4.5-6.0)
[2023-05-16 08:06] LABS: HEMATOCRIT 19 % (39-51); HEMOGLOBIN 6.7 g/dL (13.5-17.5)
[2023-05-16] MEDS ORDERED: Magnesium 1GM/D5W 100ML PREMIX 100 ML IV SCH (10:00)
[2023-05-16] MEDS: MAGNESIUM OXIDE 400 MG TABLET PO ONE (11:01)
[2023-05-16 11:21] LABS: ANISOCYTOSIS 1+; BASOPHILS % (MANUAL) 0 % (0.0-2.0); EOSINOPHILS % (MANUAL) 5 % (0-4); HYPOCHROMASIA 1+; LYMPHOCYTES % (MANUAL) 31 % (16-48); MONOCYTES % (MANUAL) 8 % (0-11.0); NEUTROPHILS % (MANUAL) 56 (42-76); PLATELET ESTIMATE DECREASED
[2023-05-16] MEDS: OCTREOTIDE 1,250 MCG in IV NS 0.9% 247.5 ML IV PRN (12:22)
[2023-05-16 15:35] LABS: HEMOGLOBIN 6.5 g/dL (13.5-17.5)
[2023-05-16] MEDS: CEFTRIAXONE 1 G in IV D5W 50 ML IV SCH (20:56)
[2023-05-17] VITALS: BP 119/61; TEMP 98.8; O2SAT 97
[2023-05-17 04:00] VITALS: BP 114/54; TEMP 97.5; O2SAT 95
[2023-05-17 07:11] LABS: BASOPHILS % (AUTO) 0.7 % (0.0-2.0); EOSINOPHILS # (AUTO) 0.1 K/uL (0.0-0.7); EOSINOPHILS % (AUTO) 3.7 % (0.0-6.0); HEMATOCRIT 24 % (39-51); HEMOGLOBIN 8.1 g/dL (13.5-17.5); LYMPHOCYTES # (AUTO) 1.3 K/uL (0.8-4.8); LYMPHOCYTES % (AUTO) 37.3 % (20.0-44.0); MEAN CORPUSCULAR HEMOGLOBIN 34 PG (26.0-33.0); MEAN CORPUSCULAR HGB CONC 35 g/dl (31.0-36.0); MEAN CORPUSCULAR VOLUME 99 fL (80-96); MONOCYTES # (AUTO) 0.3 K/uL (0.1-1.30); MONOCYTES % (AUTO) 7.9 % (2.0-12.0); NEUTROPHILS # (AUTO) 1.8 K/uL (1.8-8.9); NEUTROPHILS % (AUTO) 50.4 % (43.0-81.0); PLATELET COUNT (AUTO) 55 K/uL (150-450); RED BLOOD CELL COUNT(AUTO) 2.37 MIL/uL (4.5-6.0); RED CELL DISTRIBUTION WIDTH 19.3 % (11.5-15.0); WHITE BLOOD COUNT (AUTO) 3.6 K/uL (4.3-11.0)
[2023-05-17 08:00] VITALS: BP 113/61; TEMP 97.6; O2SAT 97
[2023-05-17 09:26] LABS: BILIRUBIN,TOTAL 2.6 mg/dL (0.2-1.0); CALCIUM, SERUM 7.8 mg/dL (8.5-10.1); CREATININE 0.7 mg/dL (0.6-1.3); MAGNESIUM 1.7 mg/dL (1.8-2.4); PHOSPHORUS 3.8 mg/dL (2.5-4.9); POTASSIUM 3.6 mmol/L (3.5-5.1); TOTAL PROTEIN, SERUM 5.6 g/dL (6.4-8.2)
[2023-05-17 10:49] LABS: ANISOCYTOSIS 1+; BASOPHILS % (MANUAL) 0 % (0.0-2.0); EOSINOPHILS % (MANUAL) 2 % (0-4); LYMPHOCYTES % (MANUAL) 29 % (16-48); MONOCYTES % (MANUAL) 8 % (0-11.0); NEUTROPHILS % (MANUAL) 61 (42-76); PLATELET ESTIMATE DECREASED; TEAR DROP CELLS 1+
[2023-05-17 12:00] VITALS: BP 108/60; TEMP 98.2; O2SAT 98
[2023-05-17 16:00] VITALS: BP 118/57; TEMP 98.1; O2SAT 97
[2023-05-17 20:00] VITALS: BP_SYST 109; BP_SYST 128; BP_DIAS 64; BP_DIAS 72; TEMP 97.7; TEMP 98.6; O2SAT 97
[2023-05-17] MEDS: PANTOPRAZOLE 40 MG VIAL IV SCH (20:37)
[2023-05-18] VITALS: BP 109/51; TEMP 98.3; O2SAT 96
[2023-05-18 04:00] VITALS: BP 108/57; TEMP 98.1; O2SAT 97
[2023-05-18 07:30] VITALS: BP 111/54; TEMP 98.4; O2SAT 98
[2023-05-18 07:56] LABS: BASOPHILS % (AUTO) 0.5 % (0.0-2.0); EOSINOPHILS # (AUTO) 0.1 K/uL (0.0-0.7); EOSINOPHILS % (AUTO) 3.6 % (0.0-6.0); HEMATOCRIT 24 % (39-51); HEMOGLOBIN 8.1 g/dL (13.5-17.5); LYMPHOCYTES # (AUTO) 1.6 K/uL (0.8-4.8); LYMPHOCYTES % (AUTO) 40.6 % (20.0-44.0); MEAN CORPUSCULAR HEMOGLOBIN 35 PG (26.0-33.0); MEAN CORPUSCULAR HGB CONC 35 g/dl (31.0-36.0); MEAN CORPUSCULAR VOLUME 101 fL (80-96); MONOCYTES # (AUTO) 0.4 K/uL (0.1-1.30); MONOCYTES % (AUTO) 9.9 % (2.0-12.0); NEUTROPHILS # (AUTO) 1.8 K/uL (1.8-8.9); NEUTROPHILS % (AUTO) 45.4 % (43.0-81.0); PLATELET COUNT (AUTO) 64 K/uL (150-450); RED BLOOD CELL COUNT(AUTO) 2.33 MIL/uL (4.5-6.0); RED CELL DISTRIBUTION WIDTH 19.4 % (11.5-15.0); WHITE BLOOD COUNT (AUTO) 3.9 K/uL (4.3-11.0)
[2023-05-18 08:16] LABS: CALCIUM, SERUM 7.8 mg/dL (8.5-10.1); CREATININE 0.8 mg/dL (0.6-1.3); POTASSIUM 3.7 mmol/L (3.5-5.1)
[2023-05-18 09:59] LABS: ANISOCYTOSIS 1+; BASOPHILS % (MANUAL) 0 % (0.0-2.0); EOSINOPHILS % (MANUAL) 3 % (0-4); LYMPHOCYTES % (MANUAL) 31 % (16-48); MONOCYTES % (MANUAL) 10 % (0-11.0); NEUTROPHILS % (MANUAL) 56 (42-76); PLATELET ESTIMATE DECREASED; TEAR DROP CELLS 1+
[2023-05-18] MEDS: DOCUSATE SODIUM 100 MG CAPSULE PO SCH (10:02)
[2023-05-18 16:01] VITALS: BP 113/56; TEMP 98.4; O2SAT 97
[2023-05-18 20:00] VITALS: BP_SYST 75; BP_SYST 90; BP_DIAS 47; BP_DIAS 71; TEMP 97.3; O2SAT 95; O2SAT 99
[2023-05-18] MEDS: IV NS 0.9% 1,000 ML IV ONE (20:55)
[2023-05-18] MEDS: SENNOSIDES 8.6 MG TABLET PO SCH (21:39)
[2023-05-19] VITALS (9 sets, daily range): BP systolic 103–127; BP diastolic 50–69; TEMP 91.9–98.4; O2SAT 97–99
[2023-05-19 07:49] LABS: HEMOGLOBIN 6.4 g/dL (13.5-17.5)
[2023-05-19] MEDS: ONDANSETRON HCL/PF 4 MG/2 ML VIAL IVP PRN (12:10)
[2023-05-19 18:28] LABS: HEMOGLOBIN 7.9 g/dL (13.5-17.5)
[2023-05-20 00:30] LABS: ABG BASE EXCESS -3.8 mmol/L; ABG OXYGEN SATURATION 99.6 % (92.0-98.5); ABG PCO2 26.8 mmHg (35.0-45.0); ABG PH 7.468 (7.350-7.450); ABG PO2 572.1 mmHg (75.0-100.0); ABG TOTAL HEMOGLOBIN 9.5 G/dL (13.5-18.0); AaDO2 114.1 mmHg; COHb 0.4 % (0.5-1.5); MetHb 0.3 % (0.0-1.5); O2Hb 98.9 % (94.0-97.0); SITE, ABG Left Radial; VENT MODE, BG 100% NRB
[2023-05-20 00:33] LABS: BASOPHILS % (AUTO) 0.3 % (0.0-2.0); EOSINOPHILS # (AUTO) 0.1 K/uL (0.0-0.7); EOSINOPHILS % (AUTO) 1.3 % (0.0-6.0); HEMATOCRIT 26 % (39-51); HEMOGLOBIN 8.9 g/dL (13.5-17.5); LYMPHOCYTES # (AUTO) 2.3 K/uL (0.8-4.8); LYMPHOCYTES % (AUTO) 31.9 % (20.0-44.0); MEAN CORPUSCULAR HEMOGLOBIN 34 PG (26.0-33.0); MEAN CORPUSCULAR HGB CONC 35 g/dl (31.0-36.0); MEAN CORPUSCULAR VOLUME 98 fL (80-96); MONOCYTES # (AUTO) 0.4 K/uL (0.1-1.30); NEUTROPHILS # (AUTO) 4.4 K/uL (1.8-8.9); NEUTROPHILS % (AUTO) 60.5 % (43.0-81.0); PLATELET COUNT (AUTO) 88 K/uL (150-450); RED BLOOD CELL COUNT(AUTO) 2.62 MIL/uL (4.5-6.0); RED CELL DISTRIBUTION WIDTH 19.8 % (11.5-15.0); WHITE BLOOD COUNT (AUTO) 7.3 K/uL (4.3-11.0)
[2023-05-20] MEDS ORDERED: ATROPINE SULFATE 1 MG/10 ML DISP.SYRIN ONE ×2 (00:39→00:47)
[2023-05-20] MEDS: ATROPINE SULFATE INJ 0.4 MG/ML VIAL IV ONE (01:19)
[2023-05-20 03:11] LABS: ANISOCYTOSIS 1+; BASOPHILS % (MANUAL) 0 % (0.0-2.0); EOSINOPHILS % (MANUAL) 2 % (0-4); HYPOCHROMASIA 1+; LYMPHOCYTES % (MANUAL) 27 % (16-48); MONOCYTES % (MANUAL) 8 % (0-11.0); NEUTROPHILS % (MANUAL) 63 (42-76); PLATELET ESTIMATE DECREASED
[2023-05-20 05:01] VITALS: BP 146/56; TEMP 97.8; O2SAT 100
[2023-05-20] MEDS ORDERED: LEVETIRACETAM (500MG) 500 MG/5 ML VIAL IV ONE (05:27)
[2023-05-20] MEDS: LEVETIRACETAM (500MG) 500 MG in IV NS 0.9% 100 ML IV ONE (05:55)
[2023-05-20 07:32] LABS: HEMOGLOBIN 7.7 g/dL (13.5-17.5)
[2023-05-20] MEDS ORDERED: LACTULOSE UDC 200 G in SODIUM CHLORIDE IRRIG SOLUTION 400 ML IR ONE (08:00)
[2023-05-20 08:25] VITALS: BP 116/54; O2SAT 100
[2023-05-20 08:34] VITALS: BP 92/58; TEMP 97.5; O2SAT 100
[2023-05-20] MEDS: THIAMINE HCL 100 MG TABLET PO SCH (09:00)
[2023-05-20] MEDS: RIFAXIMIN 550 MG TABLET PO SCH (09:00)
[2023-05-20] MEDS ORDERED: Thiamine 100 MG in IV D5W 50 ML IV SCH (09:00)
[2023-05-20] MEDS: LACTULOSE 10 G/15 ML UDC (PYXIS) PO SCH (12:00)
[2023-05-20] MEDS: IV NS 0.9% 1,000 ML IV PRN (16:02)
[2023-05-20 16:12] VITALS: BP 113/46; TEMP 97.9; O2SAT 100
[2023-05-20 16:22] VITALS: BP 119/70; TEMP 97.7; O2SAT 96
[2023-05-20 18:37] LABS: HEMOGLOBIN 7.4 g/dL (13.5-17.5)
[2023-05-20 20:00] VITALS: BP 158/70; TEMP 97.9; O2SAT 97
[2023-05-20] MEDS: PANTOPRAZOLE 40 MG/PACK PACK PO SCH (21:59)
[2023-05-21] VITALS (15 sets, daily range): BP systolic 117–150; BP diastolic 60–87; TEMP 97.3–99.7; O2SAT 97–100
[2023-05-21 08:17] LABS: BASOPHILS % (AUTO) 0.8 % (0.0-2.0); EOSINOPHILS # (AUTO) 0.1 K/uL (0.0-0.7); EOSINOPHILS % (AUTO) 2.5 % (0.0-6.0); HEMATOCRIT 21 % (39-51); LYMPHOCYTES # (AUTO) 2.1 K/uL (0.8-4.8); LYMPHOCYTES % (AUTO) 39.3 % (20.0-44.0); MEAN CORPUSCULAR HEMOGLOBIN 33 PG (26.0-33.0); MEAN CORPUSCULAR HGB CONC 34 g/dl (31.0-36.0); MEAN CORPUSCULAR VOLUME 98 fL (80-96); MONOCYTES # (AUTO) 0.6 K/uL (0.1-1.30); MONOCYTES % (AUTO) 10.7 % (2.0-12.0); NEUTROPHILS # (AUTO) 2.5 K/uL (1.8-8.9); NEUTROPHILS % (AUTO) 46.7 % (43.0-81.0); PLATELET COUNT (AUTO) 79 K/uL (150-450); RED BLOOD CELL COUNT(AUTO) 2.11 MIL/uL (4.5-6.0); RED CELL DISTRIBUTION WIDTH 19.7 % (11.5-15.0); WHITE BLOOD COUNT (AUTO) 5.3 K/uL (4.3-11.0)
[2023-05-21 08:19] LABS: CREATININE 0.7 mg/dL (0.6-1.3); POTASSIUM 3.7 mmol/L (3.5-5.1)
[2023-05-21 08:20] LABS: HEMOGLOBIN 6.9 g/dL (13.5-17.5)
[2023-05-21 11:24] LABS: ANISOCYTOSIS 1+; BAND % (MANUAL) 5 % (0.0-5.0); BASOPHILS % (MANUAL) 0 % (0.0-2.0); EOSINOPHILS % (MANUAL) 2 % (0-4); HYPOCHROMASIA 1+; LYMPHOCYTES % (MANUAL) 27 % (16-48); MONOCYTES % (MANUAL) 10 % (0-11.0); NEUTROPHILS % (MANUAL) 56 (42-76); PLATELET ESTIMATE DECREASED
[2023-05-21] MEDS: ACETAMINOPHEN 325 MG TABLET PO PRN (18:25)
[2023-05-21 19:36] LABS: HEMOGLOBIN 8.1 g/dL (13.5-17.5)
[2023-05-22] VITALS (7 sets, daily range): BP systolic 126–164; BP diastolic 67–88; TEMP 97.3–98.1; O2SAT 98–100
[2023-05-22 07:35] LABS: BASOPHILS % (AUTO) 0.6 % (0.0-2.0); EOSINOPHILS % (AUTO) 0.4 % (0.0-6.0); HEMATOCRIT 22 % (39-51); HEMOGLOBIN 7.5 g/dL (13.5-17.5); LYMPHOCYTES # (AUTO) 1.3 K/uL (0.8-4.8); LYMPHOCYTES % (AUTO) 22.3 % (20.0-44.0); MEAN CORPUSCULAR HEMOGLOBIN 32 PG (26.0-33.0); MEAN CORPUSCULAR HGB CONC 34 g/dl (31.0-36.0); MEAN CORPUSCULAR VOLUME 95 fL (80-96); MONOCYTES # (AUTO) 0.6 K/uL (0.1-1.30); MONOCYTES % (AUTO) 11.3 % (2.0-12.0); NEUTROPHILS # (AUTO) 3.7 K/uL (1.8-8.9); NEUTROPHILS % (AUTO) 65.4 % (43.0-81.0); PLATELET COUNT (AUTO) 80 K/uL (150-450); RED BLOOD CELL COUNT(AUTO) 2.33 MIL/uL (4.5-6.0); RED CELL DISTRIBUTION WIDTH 19.1 % (11.5-15.0); WHITE BLOOD COUNT (AUTO) 5.7 K/uL (4.3-11.0)
[2023-05-22 08:40] LABS: CALCIUM, SERUM 7.3 mg/dL (8.5-10.1); CREATININE 0.7 mg/dL (0.6-1.3); POTASSIUM 3.8 mmol/L (3.5-5.1)
[2023-05-22] MEDS: LACTULOSE UDC 200 G in SODIUM CHLORIDE IRRIG SOLUTION 400 ML IR SCH (09:32)
[2023-05-22 09:53] LABS: ANISOCYTOSIS 1+; BAND % (MANUAL) 3 % (0.0-5.0); EOSINOPHILS % (MANUAL) 0 % (0-4); LYMPHOCYTES % (MANUAL) 19 % (16-48); MONOCYTES % (MANUAL) 7 % (0-11.0); NEUTROPHILS % (MANUAL) 71 (42-76); PLATELET ESTIMATE DECREASED
[2023-05-22 13:21] LABS: HEMOGLOBIN 8.3 g/dL (13.5-17.5)
[2023-05-22 19:54] LABS: HEMOGLOBIN 8.2 g/dL (13.5-17.5)
[2023-05-22 23:56] LABS: HEMOGLOBIN 8.4 g/dL (13.5-17.5)
[2023-05-23] VITALS: BP 165/81; TEMP 97.7; O2SAT 99
[2023-05-23 04:00] VITALS: BP_SYST 134; BP_SYST 153; BP_DIAS 79; BP_DIAS 87; TEMP 97.6; TEMP 97.9; O2SAT 97; O2SAT 98
[2023-05-23 07:20] LABS: BASOPHILS % (AUTO) 0.4 % (0.0-2.0); EOSINOPHILS % (AUTO) 0.2 % (0.0-6.0); HEMATOCRIT 23 % (39-51); HEMOGLOBIN 7.7 g/dL (13.5-17.5); LYMPHOCYTES # (AUTO) 1.4 K/uL (0.8-4.8); LYMPHOCYTES % (AUTO) 18.6 % (20.0-44.0); MEAN CORPUSCULAR HEMOGLOBIN 32 PG (26.0-33.0); MEAN CORPUSCULAR HGB CONC 33 g/dl (31.0-36.0); MEAN CORPUSCULAR VOLUME 96 fL (80-96); MONOCYTES % (AUTO) 12.9 % (2.0-12.0); NEUTROPHILS % (AUTO) 67.9 % (43.0-81.0); PLATELET COUNT (AUTO) 94 K/uL (150-450); RED BLOOD CELL COUNT(AUTO) 2.43 MIL/uL (4.5-6.0); RED CELL DISTRIBUTION WIDTH 19.1 % (11.5-15.0); WHITE BLOOD COUNT (AUTO) 7.3 K/uL (4.3-11.0)
[2023-05-23 07:30] VITALS: BP 159/88; TEMP 97.8; O2SAT 99
[2023-05-23 07:48] LABS: CREATININE 0.9 mg/dL (0.6-1.3); POTASSIUM 3.5 mmol/L (3.5-5.1)
[2023-05-23 08:45] LABS: ANISOCYTOSIS 1+; EOSINOPHILS % (MANUAL) 0 % (0-4); LYMPHOCYTES % (MANUAL) 15 % (16-48); MONOCYTES % (MANUAL) 8 % (0-11.0); NEUTROPHILS % (MANUAL) 77 (42-76); PLATELET ESTIMATE DECREASED
[2023-05-23] MEDS: MORPHINE SULFATE INJ 4 MG/ML DISP.SYRIN IV PRN ×2 (12:45→22:18)
[2023-05-23 16:15] VITALS: BP 156/73; TEMP 97.7; O2SAT 98
[2023-05-23] MEDS: LORAZEPAM INJ 2 MG/ML VIAL IV PRN (17:01)
[2023-05-23] MEDS: SCOPOLAMINE PATCH 1 MG/72HR TD SCH (18:14)
[2023-05-23 20:00] VITALS: BP 137/73; TEMP 97.5; O2SAT 98
[2023-05-24 04:29] VITALS: BP 140/73; O2SAT 98
[2023-05-24 07:26] LABS: BASOPHILS % (AUTO) 0.5 % (0.0-2.0); EOSINOPHILS # (AUTO) 0.1 K/uL (0.0-0.7); EOSINOPHILS % (AUTO) 0.8 % (0.0-6.0); LYMPHOCYTES # (AUTO) 1.7 K/uL (0.8-4.8); LYMPHOCYTES % (AUTO) 24.2 % (20.0-44.0); MEAN CORPUSCULAR HEMOGLOBIN 32 PG (26.0-33.0); MEAN CORPUSCULAR HGB CONC 33 g/dl (31.0-36.0); MEAN CORPUSCULAR VOLUME 97 fL (80-96); MONOCYTES # (AUTO) 0.9 K/uL (0.1-1.30); MONOCYTES % (AUTO) 12.4 % (2.0-12.0); NEUTROPHILS # (AUTO) 4.4 K/uL (1.8-8.9); NEUTROPHILS % (AUTO) 62.1 % (43.0-81.0); PLATELET COUNT (AUTO) 80 K/uL (150-450); RED CELL DISTRIBUTION WIDTH 19.7 % (11.5-15.0); WHITE BLOOD COUNT (AUTO) 7.1 K/uL (4.3-11.0)
[2023-05-24 07:28] LABS: RED BLOOD CELL COUNT(AUTO) 1.95 MIL/uL (4.5-6.0)
[2023-05-24 07:31] LABS: HEMATOCRIT 19 % (39-51); HEMOGLOBIN 6.2 g/dL (13.5-17.5)
[2023-05-24 08:00] VITALS: BP 143/80; TEMP 98.2; O2SAT 96
[2023-05-24 08:02] LABS: CALCIUM, SERUM 7.6 mg/dL (8.5-10.1); CREATININE 0.9 mg/dL (0.6-1.3); POTASSIUM 4.1 mmol/L (3.5-5.1)
[2023-05-24] MEDS: MORPHINE SULFATE INJ 4 MG/ML DISP.SYRIN IV PRN (08:58)
[2023-05-24] MEDS ORDERED: SCOP1PAT11 TD (11:33)
[2023-05-24] MEDS ORDERED: ACET325T53 PO (11:33)
[2023-05-24 11:39] LABS: ANISOCYTOSIS 1+; BAND % (MANUAL) 6 % (0.0-5.0); BASOPHILS % (MANUAL) 0 % (0.0-2.0); EOSINOPHILS % (MANUAL) 0 % (0-4); HYPOCHROMASIA 1+; LYMPHOCYTES % (MANUAL) 18 % (16-48); MONOCYTES % (MANUAL) 11 % (0-11.0); NEUTROPHILS % (MANUAL) 65 (42-76); PLATELET ESTIMATE DECREASED; STOMATOCYTES 1+
[2023-05-24] MEDS: IV 1/2NS 1000 ML 1,000 ML IV PRN (12:25)
[2023-05-24 16:00] VITALS: BP 133/65; TEMP 97.7; O2SAT 94
[2023-05-24 22:21] VITALS: BP 113/66; TEMP 98.9; O2SAT 97
[2023-05-25 00:44] VITALS: O2SAT 95
[2023-05-25 07:14] LABS: BASOPHILS % (AUTO) 0.3 % (0.0-2.0); EOSINOPHILS % (AUTO) 0.5 % (0.0-6.0); LYMPHOCYTES # (AUTO) 1.6 K/uL (0.8-4.8); MEAN CORPUSCULAR HEMOGLOBIN 32 PG (26.0-33.0); MEAN CORPUSCULAR HGB CONC 33 g/dl (31.0-36.0); MEAN CORPUSCULAR VOLUME 99 fL (80-96); MONOCYTES # (AUTO) 0.9 K/uL (0.1-1.30); MONOCYTES % (AUTO) 11.1 % (2.0-12.0); NEUTROPHILS # (AUTO) 5.7 K/uL (1.8-8.9); NEUTROPHILS % (AUTO) 69.1 % (43.0-81.0); PLATELET COUNT (AUTO) 100 K/uL (150-450); RED CELL DISTRIBUTION WIDTH 20.3 % (11.5-15.0); WHITE BLOOD COUNT (AUTO) 8.3 K/uL (4.3-11.0)
[2023-05-25 07:25] LABS: CALCIUM, SERUM 7.1 mg/dL (8.5-10.1); CREATININE 1.2 mg/dL (0.6-1.3); POTASSIUM 4.3 mmol/L (3.5-5.1)
[2023-05-25 07:45] LABS: HEMATOCRIT 17 % (39-51); HEMOGLOBIN 5.5 g/dL (13.5-17.5)
[2023-05-25 08:00] VITALS: BP 114/56; TEMP 98.3; O2SAT 98
[2023-05-25 08:07] VITALS: O2SAT 95
[2023-05-25 10:56] LABS: ANISOCYTOSIS 1+; BAND % (MANUAL) 3 % (0.0-5.0); BASOPHILS % (MANUAL) 0 % (0.0-2.0); EOSINOPHILS % (MANUAL) 0 % (0-4); HYPOCHROMASIA 1+; LYMPHOCYTES % (MANUAL) 15 % (16-48); MONOCYTES % (MANUAL) 9 % (0-11.0); NEUTROPHILS % (MANUAL) 73 (42-76); OVALOCYTES 1+; PLATELET ESTIMATE DECREASED; TARGET CELLS 1+
== END 2023-05-25 13:25 | disposition hospice, home (50) | DRG 197 ==
LOC: ER 09:41 → ICU 17:11 → TELE 17:39 → MED 05-18 15:45 → TELE 05-20 00:20 → MED 05-23 17:37
PROC: 0DJ08ZZ Inspection of Upper Intestinal Tract, Via Natural or Artificial Opening Endoscopic (ICD-10-PCS; principal; 2023-05-15)
PROC: 30233N1 Transfusion of Nonautologous Red Blood Cells into Peripheral Vein, Percutaneous Approach (ICD-10-PCS; 2023-05-16)
PROC: 05H933Z Insertion of Infusion Device into Right Brachial Vein, Percutaneous Approach (ICD-10-PCS; 2023-05-20)
PROC: B54MZZA Ultrasonography of Right Upper Extremity Veins, Guidance (ICD-10-PCS; 2023-05-20)
DX: I86.4 Gastric varices (principal); G93.41 Metabolic encephalopathy; K76.82 Hepatic encephalopathy; D61.818 Other pancytopenia; E44.0 Moderate protein-calorie malnutrition; K76.6 Portal hypertension; K29.70 Gastritis, unspecified, without bleeding; K70.30 Alcoholic cirrhosis of liver without ascites; K76.0 Fatty (change of) liver, not elsewhere classified; D75.89 Other specified diseases of blood and blood-forming organs; E11.9 Type 2 diabetes mellitus without complications; E87.70 Fluid overload, unspecified; I10 Essential (primary) hypertension; Z51.5 Encounter for palliative care; Z66 Do not resuscitate; Z79.84 Long term (current) use of oral hypoglycemic drugs; Z85.038 Personal history of other malignant neoplasm of large intestine; E87.0 Hyperosmolality and hypernatremia; E88.09 Other disorders of plasma-protein metabolism, not elsewhere classified; Z68.28 Body mass index [BMI] 28.0-28.9, adult; F10.20 Alcohol dependence, uncomplicated; D53.9 Nutritional anemia, unspecified; R16.1 Splenomegaly, not elsewhere classified; D50.0 Iron deficiency anemia secondary to blood loss (chronic)
CPT/HCPCS: 31720; 36415; 36600; 70450-TC; 71045-TC; 80048-TC; 80053-TC; 80076-TC; 82140-TC; 82803-TC; 82962-TC; 83605-TC; 83690-TC; 83735-TC; 84100-TC; 84484-TC; 85025-TC; 85027-TC; 85730-TC; 86850-TC; 87040-TC; 94799-TC; A4217; A4223; C9113; G0378; J0330; J0461; J0696; J1953; J2060; J2270; J2354; J2405; J2704; J3411; J3490; J7030; J7040; J7050; J7060; P9016